=== PATIENT | female | born 1960 | race Caucasian/White ===

== ENCOUNTER 2019-12-01 09:57 | Inpatient (IN) | payer OTHER ==
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
[2019-12-02] MEDS ORDERED: CYCLOBENZAPRINE 10 MG TAB PO PRN (20:07)
[2019-12-02] MEDS: CODEINE 30MG/APAP 300MG TAB PO PRN (20:37)
[2019-12-02] MEDS ORDERED: MAGNES/ALUMIN/SIMET 30ML UCUP PO PRN (22:22)
[2019-12-02] MEDS ORDERED: FEXOFENADINE 180 MG TAB PO PRN (22:24)
[2019-12-02] MEDS ORDERED: CALCIUM CARBONATE CHEW 500MG TAB PO PRN (22:25)
[2019-12-02] MEDS ORDERED: DOCUSATE NA/SENNA CONC 1 TAB PO PRN (22:26)
[2019-12-03] MEDS ORDERED: IBUPROFEN 400 MG TAB PO SCH (01:00)
[2019-12-03] MEDS: CODEINE 30MG/APAP 300MG TAB PO PRN ×5 (03:10→21:15)
[2019-12-03 04:09] LABS: Urine Appearance CLEAR; Urine Bilirubin NEGATIVE (NEG); Urine Blood NEGATIVE (NEG); Urine Color YELLOW; Urine Glucose NEGATIVE (NEG); Urine Protein NEGATIVE (NEG); Urine pH 5.5 (5.0-7.0)
[2019-12-03 04:38] LABS: Urine Bacteria >50 /HPF (<20); Urine Culture Reflex Order NOT NEEDED; Urine RBC <5 /HPF (NONE SEEN)
[2019-12-03 04:39] LABS: Urine Mucus 2+ /HPF (NONE SEEN)
[2019-12-03 07:08] LABS: Albumin 2.3 g/dL (3.4-5.0); BUN Blood Urea Nitrogen 11 mg/dL (7-18); Bicarbonate 29 mmol/L (21-32); Glucose Level 79 mg/dL (74-106); Magnesium 1.7 mg/dL (1.8-2.4); Potassium 3.7 mmol/L (3.5-5.1); Prealbumin 10.1 mg/dL (20-40); Sodium Level 143 mmol/L (136-145)
[2019-12-03 07:23] LABS: Absolute Lymphocytes (CBC) 1.3 K/uL (0.7-4.9); Basophils % 0.6 % (0-1.3); Hematocrit 26.2 % (36.0-45.0); Lymphocytes % 18.5 % (15.3-44.8); MPV 7.7 fL (7.6-11.3); RBC Red Blood Cell Count 2.94 M/uL (3.86-4.86)
[2019-12-03] MEDS ORDERED: DULERA 100/5 (MOMETASONE/FORMOTEROL) INHALER IH SCH (08:00)
[2019-12-03] MEDS ORDERED: GABAPENTIN 300 MG CAP PO SCH (08:00)
[2019-12-03] MEDS: FERROUS SULFATE 325 MG TAB PO SCH (08:29)
[2019-12-03] MEDS: FE SULF/FA/VIT B COMP & C TAB PO SCH (08:29)
[2019-12-03] MEDS: APIXABAN 2.5 MG TABLET PO SCH ×2 (08:30→19:51)
[2019-12-03] MEDS: MONTELUKAST 10 MG TAB PO SCH (08:30)
[2019-12-03] MEDS: PROMOD 30 ML DOSE PO SCH ×2 (08:32→19:51)
[2019-12-03] MEDS ORDERED: ALBUTEROL 2.5 MG/3 ML NEB SOL NEB PRN ×2 (09:05→16:00)
--- NOTE | 2019-12-03 10:04 | P.RH.PN ---
Estimated Length of Stay: 7 Expected Discharge Date: 12/09/19 Discharge Disposition Plan: Home Family Support: Yes Barrel Waterer Goal: Mobility, Transfers, Self Care Vital Signs: Last Vital Signs Temp 99.6 F 12/03/19 07:11 Pulse 88 12/03/19 09:29 Resp 16 12/03/19 09:28 BP 170/90 H 12/03/19 09:29 Pulse Ox 96 12/03/19 09:28 Laboratory: Laboratory Last Values WBC 7.2 K/uL (4.3-10.9) 12/03/19 06:22 RBC 2.94 M/uL (3.86-4.86) L 12/03/19 06:22 Hgb 8.9 g/dL (12.0-15.0) L 12/03/19 06:22 Hct 26.2 % (36.0-45.0) L 12/03/19 06:22 MCV 88.8 fL (80-100) 12/03/19 06:22 MCH 30.3 pg (27.0-35.0) 12/03/19 06:22 MCHC 34.2 g/dL (32.0-36.0) 12/03/19 06:22 RDW 12.5 % (12.1-15.2) 12/03/19 06:22 Plt Count 268 K/uL (152-406) 12/03/19 06:22 MPV 7.7 fL (7.6-11.3) 12/03/19 06:22 Neutrophils % 66.3 % (41.7-73.7) 12/03/19 06:22 Lymphocytes % 18.5 % (15.3-44.8) 12/03/19 06:22 Monocytes % 8.3 % (3.3-12.3) 12/03/19 06:22 Eosinophils % 6.3 % (0-4.4) H 12/03/19 06:22 Basophils % 0.6 % (0-1.3) 12/03/19 06:22 Absolute Neutrophils 4.8 K/uL (1.8-8.0) 12/03/19 06:22 Absolute Lymphocytes 1.3 K/uL (0.7-4.9) 12/03/19 06:22 Absolute Monocytes 0.6 K/uL (0.1-1.3) 12/03/19 06:22 Absolute Eosinophils 0.5 K/uL (0-0.5) 12/03/19 06:22 Absolute Basophils 0.0 K/uL (0-0.5) 12/03/19 06:22 Sodium 143 mmol/L (136-145) 12/03/19 06:22 Potassium 3.7 mmol/L (3.5-5.1) 12/03/19 06:22 Chloride 108 mmol/L (98-107) H 12/03/19 06:22 Carbon Dioxide 29 mmol/L (21-32) 12/03/19 06:22 BUN 11 mg/dL (7-18) 12/03/19 06:22 Creatinine 0.47 mg/dL (0.55-1.3) L 12/03/19 06:22 Estimated GFR > 90 mL/min (=/>90) 12/03/19 06:22 Glucose 79 mg/dL (74-106) 12/03/19 06:22 Calcium 7.8 mg/dL (8.5-10.1) L 12/03/19 06:22 Magnesium 1.7 mg/dL (1.8-2.4) L 12/03/19 06:22 Albumin 2.3 g/dL (3.4-5.0) L 12/03/19 06:22 Prealbumin 10.1 mg/dL (20-40) L 12/03/19 06:22 Urine Color Yellow 12/03/19 03:15 Urine Appearance Clear 12/03/19 03:15 Urine pH 5.5 (5.0-7.0) 12/03/19 03:15 Ur Specific [place] 1.020 (1.005-1.030) 12/03/19 03:15 Glucose (UA)(Auto) Negative (NEG) 12/03/19 03:15 Urine Ketones 2+ (NEG) H 12/03/19 03:15 Urine Blood Negative (NEG) 12/03/19 03:15 Urine Nitrite Negative (NEG) 12/03/19 03:15 Urine Bilirubin Negative (NEG) 12/03/19 03:15 Urine Urobilinogen 1.0 mg/dL (0.2-1.0) 12/03/19 03:15 Ur Leukocyte Esterase Negative (NEG) 12/03/19 03:15 Urine RBC <5 /HPF (NONE SEEN) 12/03/19 03:15 Urine WBC 5-10 /HPF (<5) H 12/03/19 03:15 Ur Squamous Epith Cells 10-20 /HPF (NONE SEEN) H 12/03/19 03:15 Urine Bacteria >50 /HPF (<20) H 12/03/19 03:15 Hyaline Casts Few /LPF (NONE SEEN) 12/03/19 03:15 Fine Granular Casts Few /LPF (NONE SEEN) 12/03/19 03:15 Urine Mucus 2+ /HPF (NONE SEEN) 12/03/19 03:15 Urine Culture Reflexed Not needed 12/03/19 03:15 Urine Total Protein Negative (NEG) 12/03/19 03:15 Weight: 214 lb Physician Update: Labs reviewed. Her Hgb and prealbumin are low. Will start hemocyte plus and promod. She is being evaluated by PT and OT. Summary: Patient's care plan and long term care phlebotomist goals have been reviewed and revised as necessary. Please see the Rehabilitation Signature page for all necessary signatures.
[2019-12-03] MEDS ORDERED: SENOSIDES 8.6 MG TAB PO PRN (13:05)
[2019-12-03] MEDS: CRANBERRY FRUIT EXTRACT 200 MG CAP PO SCH (19:51)
[2019-12-03] MEDS: GABAPENTIN 300 MG CAP PO SCH (19:51)
[2019-12-03] MEDS: DULERA 100/5 (MOMETASONE/FORMOTEROL) INHALER IH SCH (19:54)
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
[2019-12-03] MEDS: DOCUSATE NA/SENNA CONC 1 TAB PO SCH (20:15)
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
--- NOTE | 2019-12-03 22:18 | PAPE ---
PATIENT: [facility] MR# [id number] REFERRING DOCTOR Beatriz PIMENTEL EVALUATION DATE AND TIME 12/03/2019 22:17 (CDT) NAME BERTHA PARDO DATE OF 1960 AGE 58 PHONE SSN# [id number] GENDER female EVALUATING PHYSICIAN Dr. Nick Romo M.D. ADMISSION DIAGNOSIS: RIGHT FEMUR FRACTURE POST-ADMISSION FUNCTIONAL/MEDICAL STATUS: - Bladder Same accident frequency: Ind - No accidents in the past 7 days - Bowel Same accident frequency: Ind - No accidents in the past 7 days - Walking Same score based on distance walked: 0(N/A) Same score based on distance walked: 1(<=50ft) - Wheelchair Same score based on distance traveled: 0(N/A) STATUS CHANGE EVALUATION: No change in Functional or Medical Status is identified compared with Pre-Admission screening. PATIENT NEEDS CLOSE MEDICAL SUPERVISION BY A REHABILITATION PHYSICIAN FOR: Coordination of Treatment Team Post-Op Complications PATIENT REQUIRES 24X7 REHAB NURSING FOR MEDICAL AND FUNCTIONAL MGT. OF THE FOLLOWING DEFICITS: Disease Management Medication Management Patient/Family Education Providing Safe Environment PATIENT REQUIRES INTENSIVE, COORDINATED INTERDISCIPLINARY APPROACH TO REHAB: Arranging Home Equipment/Services Discharge Planning Family Intervention/Training Advertising Intern/Case Management LIST OF IDENTIFIED AND POTENTIAL PROBLEMS: Alteration in leisure activities Bladder, Incontinence Bowel, Incontinence Infection, Actual or Potential Mobility Impaired Pain, Alteration in Comfort Self Care Deficit Skin Integrity, Actual or Potential Urinary Tract Infection (UTI), Actual or Potential PATIENT COULD BE AT RISK FOR COMPLICATIONS FROM ADVERSE MEDICAL CONDITIONS DUE TO HIS/HER COMORBIDITI ES AND THE RIGORS OF THE INTENSIVE REHABILLITATION PROGRAM. METHODS OR INTERVENTIONS TO AVOID COMPLIC ATIONS INCLUDE: - Infection Clinical staff to assess and manage the signs and symptoms of infection including fever, redness, war mth, etc. - Urinary Tract Infection - Falls Patient will be evaluated for Fall Precautions and will be placed on Fall Precautions as indicated pe r protocol. - Skin Breakdown Nursing will assess skin daily using assessment tool and will place on Skin Breakdown Precautions as indicated per protocol. - Pain Clinical staff may employ non-medication methods such as massage, distraction, decrease stimulus, etc . as needed. Clinical staff will assess patient's pain level every shift per protocol to assess and e nsure pain management effectiveness. Medications will be given and the pain level re-assessed. PRELIMINARY PLAN OF CARE: - Physical Therapy Patient needs Physical Therapy for a daily minimum of 1.5 hours at least 5 out of 7 days, to improve: Mobility, Strengthening, Transfers, Stretching, ROM, Endurance, Ability to manage stairs, Gait, and Balance. - Rehabilitation Nursing Patient requires 24x7 Rehabilitation Nursing for: Pain Issues, Identifying and preventing risk factor s, Monitoring and reporting current medical conditions, Assisting with ambulation and transfer, Lilli ting with all ADL-s, Teaching patients about disease process and medications, Family teaching, Provid ing safe environment, Bowel and Bladder Issues, Skin Integrity, and Medication Management. Patient needs Advertising Intern and/or Case Management for: Discharge Planning, Arranging Home Equipmen t or Services, and Family Interventions. - Dietary and Nutrition Services Patient needs Dietary and Nutrition Services for: Adequate Nutrition, Nutritional Supplements, and Nu tritional Education. - Occupational Therapy Patient needs Occupational Therapy for a daily minimum of 1.5 hours at least 5 out of 7 days, to impr ove Activities of Daily Living, including: Eating, Grooming, Bathing, Dressing, Toileting, Toilet Tra nsfers, Community Reintegration, Higher functional activities, Adaptive Equipment, Splinting, Househo ld Tasks, and Other activities as determined. QI SCORES: - Self-Care A. Eating 06-Independent B. Oral hygiene 03-Partial/moderate assistance C. Toileting hygiene 03-Partial/moderate assistance E. Shower/bathe self 02-Substantial/maximal assistance F. Upper body dressing 03-Partial/moderate assistance G. Lower body dressing 03-Partial/moderate assistance H. Putting on/taking off footwear 03-Partial/moderate assistance - Mobility A. Roll left and right 06-Independent B. Sit to lying 03-Partial/moderate assistance C. Lying to sitting on side of bed 03-Partial/moderate assistance D. Sit to stand 02-Substantial/maximal assistance E. Chair/gxh-ac-vxsoo transfer 03-Partial/moderate assistance F. Toilet transfer 03-Partial/moderate assistance G. Car transfer 88-Not attempted due to medical condition or safety concerns I. Walk 10 feet 88-Not attempted due to medical condition or safety concerns J. Walk 50 feet with two turns 88-Not attempted due to medical condition or safety concerns K. Walk 150 feet 88-Not attempted due to medical condition or safety concerns L. Walking 10 feet on uneven surfaces 88-Not attempted due to medical condition or safety concerns M. 1 step (curb) 88-Not attempted due to medical condition or safety concerns N. 4 steps 88-Not attempted due to medical condition or safety concerns O. 12 steps 88-Not attempted due to medical condition or safety concerns P. Picking up object 06-Independent R. Wheel 50 feet with two turns 88-Not attempted due to medical condition or safety concerns S. Wheel 150 feet 88-Not attempted due to medical condition or safety concerns - Bladder and Bowel Bladder continence 0-Always continent Bowel continence 0-Always continent - Endurance Fair - Balance Fair - Safety Awareness Fair POTENTIAL FUNCTIONAL GOALS FOR PATIENT TO ACHIEVE BY DISCHARGE: - Safety Precaution Patient will remain free from falls or injury at time of discharge. - Bed Mobility Patient will perform bed mobility at 4-Noe level of assistance. - Transfers Patient will complete transfers from bed to chair at 4-Noe level of assistance. - Mobility Patient will ambulate 150 ft with 4-Noe level of assistance with RW. PATIENT REHAB POTENTIAL Audrey PARDO is able and expected to receive 3 hours of individualized therapy daily on at least 5 of juan 7 days Audrey PARDO's prognosis for significant practical improvement within a reasonable period of time appear s Good Expected level of measurable improvement will be of a practical value to Audrey PARDO's functional capac ity or adaptations to impairments Has a viable Discharge Plan Medically appropriate; condition is sufficiently stable to participate in intensive rehab program DISCHARGE PLAN: - Estimated Length of Stay (days) 14. - Consensus on plan Discharge plan has been discussed with primary caregiver. Patient/Family is in agreement with the michelle n. Primary caregiver is in agreement with the plan. - Patient/Family Goals Return home independently. - Planned Living Setting Upon Discharge Home, to live with Family/Relatives. Transitional Living. CONCLUSION ON REHABILITATION NECESSITY: I have evaluated patient's pre-admission functional status and, comparing it to the patient's post-ad mission functional status now, I conclude that the pre-admission assessment was accurate. Patient's c ondition on admission supports the medical necessity of admission to IR[facility]. It is safe to proceed with patient's therapy program. SIGNATURE PANEL: (CDT)
[2019-12-04] MEDS: CODEINE 30MG/APAP 300MG TAB PO PRN ×3 (07:17→17:40)
[2019-12-04] MEDS: CRANBERRY FRUIT EXTRACT 200 MG CAP PO SCH ×2 (07:18→18:50)
[2019-12-04] MEDS: MONTELUKAST 10 MG TAB PO SCH ×2 (07:19→18:51)
[2019-12-04] MEDS: GABAPENTIN 300 MG CAP PO SCH ×2 (07:19→18:50)
[2019-12-04] MEDS: FE SULF/FA/VIT B COMP & C TAB PO SCH (07:19)
[2019-12-04] MEDS: FERROUS SULFATE 325 MG TAB PO SCH (07:19)
[2019-12-04] MEDS: APIXABAN 2.5 MG TABLET PO SCH ×2 (07:19→18:50)
[2019-12-04] MEDS: DULERA 100/5 (MOMETASONE/FORMOTEROL) INHALER IH SCH ×2 (07:19→18:52)
[2019-12-04] MEDS: PROMOD 30 ML DOSE PO SCH ×2 (07:20→19:14)
[2019-12-04] MEDS ORDERED: AMLODIPINE 5 MG TAB PO ONE (10:20)
--- NOTE | 2019-12-04 14:23 | PN ---
Date of Progress Note: 12/04/2019 Subjective: Patient was seen this morning for followup. No new complaints or problems reported by nancy boyer. She was sitting in wheelchair. Pain is well controlled. On pain scale 0-10, it is around 5 /10. Her last bowel movement was day before yesterday. Denies any abdominal pain. No chest pain. No shortness of breath. Objective: HEENT: Unremarkable. Lungs: Clear to auscultation. Heart: Sounds normal. Abdomen: Soft. Bowel sounds normal. No guarding, rigidity, tenderness, distention. Extremities: Trace edema of right dorsum foot. Impression: 1.Hypertension. 2.Mild persistent asthma. 3.Fracture, right distal femur, status post open reduction and internal fixation. 4.Anemia due to acute blood loss. Plan: We will continue current medication. Continue current stool softener. Start the patient on a ntihypertensive medication. Continue iron supplement. Continue current pain medication. Orthopedic consultation was requested from Dr. Verdugo and I will see her tomorrow for followup. ALEXA/MODL Voice ID: [id number] Report ID: [id number]
[2019-12-04 18:07] LABS: Absolute Lymphocytes (CBC) 1.5 K/uL (0.7-4.9); Basophils % 0.6 % (0-1.3); Hematocrit 28.4 % (36.0-45.0); Lymphocytes % 17.3 % (15.3-44.8); MPV 7.5 fL (7.6-11.3); RBC Red Blood Cell Count 3.22 M/uL (3.86-4.86)
--- NOTE | 2019-12-04 18:23 | RAD REPORT ---
EXAM DESCRIPTION: RAD - Chest Single View - 12/04/2019 6:12 pm CLINICAL HISTORY: fever COMPARISON: Two view chest May 2017 TECHNIQUE: AP portable chest image was obtained 12/04/2019 6:12 pm . FINDINGS: Lungs are clear. Heart and vasculature are normal. No measurable pleural effusion and no p neumothorax. No acute bony abnormality seen. No acute aortic findings suspected. No worries change fr om comparison. IMPRESSION: No acute cardiopulmonary process.
[2019-12-04 18:41] LABS: ALT/SGPT 49 U/L (12-78); AST/SGOT 42 U/L (15-37); Albumin 2.5 g/dL (3.4-5.0); Alkaline Phosphatase 173 U/L (45-117); BUN Blood Urea Nitrogen 11 mg/dL (7-18); Bicarbonate 28 mmol/L (21-32); Bilirubin Total 0.8 mg/dL (0.2-1.0); Glucose Level 121 mg/dL (74-106); Magnesium 1.6 mg/dL (1.8-2.4); Potassium 3.2 mmol/L (3.5-5.1); Protein, Total 6.3 g/dL (6.4-8.2); Sodium Level 138 mmol/L (136-145); Thyroid Stimulating Hormone 0.922 uIU/mL (0.360-3.740)
[2019-12-04] MEDS: DOCUSATE NA/SENNA CONC 1 TAB PO SCH (18:50)
[2019-12-04] MEDS: MELATONIN 3 MG TABLET PO PRN (18:50)
[2019-12-04] MEDS: IBUPROFEN 400 MG TAB PO PRN (18:52)
[2019-12-05] MEDS: CODEINE 30MG/APAP 300MG TAB PO PRN ×4 (05:13→16:12)
[2019-12-05 06:25] LABS: Urine Appearance CLEAR; Urine Bilirubin NEGATIVE (NEG); Urine Blood 1+ (NEG); Urine Color DK YELLOW; Urine Glucose NEGATIVE (NEG); Urine Protein NEGATIVE (NEG); Urine pH 5.5 (5.0-7.0)
[2019-12-05 07:19] LABS: Urine Bacteria 20-50 /HPF (<20); Urine Culture Reflex Order NOT NEEDED
[2019-12-05] MEDS ORDERED: AMLODIPINE 5 MG TAB PO SCH (08:00)
[2019-12-05] MEDS: CRANBERRY FRUIT EXTRACT 200 MG CAP PO SCH ×2 (08:18→19:05)
[2019-12-05] MEDS: MONTELUKAST 10 MG TAB PO SCH (08:18)
[2019-12-05] MEDS: FE SULF/FA/VIT B COMP & C TAB PO SCH (08:18)
[2019-12-05] MEDS: PROMOD 30 ML DOSE PO SCH ×2 (08:19→19:08)
[2019-12-05] MEDS: MAGNESIUM OXIDE 400 MG TAB PO SCH ×2 (08:19→19:05)
[2019-12-05] MEDS: APIXABAN 2.5 MG TABLET PO SCH ×2 (08:19→19:06)
[2019-12-05] MEDS: GABAPENTIN 300 MG CAP PO SCH ×2 (08:19→19:06)
[2019-12-05] MEDS: FERROUS SULFATE 325 MG TAB PO SCH (08:19)
[2019-12-05] MEDS: DULERA 100/5 (MOMETASONE/FORMOTEROL) INHALER IH SCH ×2 (08:22→19:09)
[2019-12-05] MEDS ORDERED: CIPROFLOXACIN HCL 500 MG TAB PO ONE (08:23)
--- NOTE | 2019-12-05 09:30 | P.PN ---
Date of Service: 12/04/19 (spoke to dr miller we were not consulted)
[2019-12-05] MEDS ORDERED: POTASSIUM CL SA 10 MEQ TAB PO ONE (11:42)
--- NOTE | 2019-12-05 13:27 | PN ---
Date of Progress Note: 12/05/2019 Subjective: The patient was seen this morning for followup. No new complaints or problems reported by patient this morning. Vital signs reviewed. Her last bowel movement was the day she came in from another hospital. Denies any abdominal pain, nausea, or vomiting. Patient reports that at home she does not have bowel movement on a daily basis. She has 1 every few days, so this is not unusual for her. Pain is well controlled. Denies any shortness of breath. Objective: Vital Signs: Reviewed. Yesterday, she had low-grade fever and workup was done and resul ts reviewed. HEENT: Unremarkable. Lungs: Clear to auscultation. Heart: Sounds normal. Abdomen: Soft. Bowel sounds normal. No guarding, rigidity, tenderness, or distention. Extremities: Right foot edema. Laboratory Data: white count yesterday 8.9, hemoglobin 9.7, platelets 320. Sodium 138, potassium 3. 2, chloride 103, bicarb 28, BUN 11, creatinine 0.41, glucose 121, magnesium 1.6. TSH 0.922. Urinaly sis: 2+ esterase, 20-50 wbc's, and 20-50 bacteria. Urine culture pending. Chest x-ray, no evidence of infiltrate. Impression: 1.Urinary tract infection. 2.Hypertension. 3.Right femur fracture. 4.Anemia due to acute blood loss. Plan: We will go ahead and start the patient on Cipro. Replace electrolytes per order. Continue cu rrent antihypertensive medications and hold if systolic blood pressure is less than 130. Details and plan of treatment discussed with h er. ALEXA/NADER Voice ID: [id number] Report ID: [id number]
[2019-12-05] MEDS: MAGNESIUM HYDROXIDE 8% 30 ML PO PRN (16:12)
[2019-12-05] MEDS: MELATONIN 3 MG TABLET PO PRN (19:06)
[2019-12-05] MEDS: DOCUSATE NA/SENNA CONC 1 TAB PO SCH (19:06)
[2019-12-05] MEDS: IBUPROFEN 400 MG TAB PO PRN (19:06)
[2019-12-05] MEDS: CIPROFLOXACIN HCL 500 MG TAB PO SCH (19:07)
[2019-12-06] MEDS: CODEINE 30MG/APAP 300MG TAB PO PRN ×4 (03:06→20:30)
[2019-12-06 06:47] LABS: BUN Blood Urea Nitrogen 12 mg/dL (7-18); Bicarbonate 34 mmol/L (21-32); Glucose Level 103 mg/dL (74-106); Potassium 3.7 mmol/L (3.5-5.1); Sodium Level 142 mmol/L (136-145)
[2019-12-06] MEDS: PROMOD 30 ML DOSE PO SCH ×2 (07:54→19:37)
[2019-12-06] MEDS: DULERA 100/5 (MOMETASONE/FORMOTEROL) INHALER IH SCH ×2 (07:55→19:37)
[2019-12-06] MEDS: CRANBERRY FRUIT EXTRACT 200 MG CAP PO SCH ×2 (07:55→19:36)
[2019-12-06] MEDS: FERROUS SULFATE 325 MG TAB PO SCH (07:56)
[2019-12-06] MEDS: AMLODIPINE 5 MG TAB PO SCH (07:56)
[2019-12-06] MEDS: GABAPENTIN 300 MG CAP PO SCH ×2 (07:56→19:36)
[2019-12-06] MEDS: MAGNESIUM OXIDE 400 MG TAB PO SCH ×2 (07:56→19:36)
[2019-12-06] MEDS: MONTELUKAST 10 MG TAB PO SCH (07:56)
[2019-12-06] MEDS: CIPROFLOXACIN HCL 500 MG TAB PO SCH ×2 (07:57→19:36)
[2019-12-06] MEDS: APIXABAN 2.5 MG TABLET PO SCH ×2 (07:57→19:36)
[2019-12-06] MEDS: FE SULF/FA/VIT B COMP & C TAB PO SCH (07:57)
[2019-12-06] MEDS: MAGNESIUM HYDROXIDE 8% 30 ML PO PRN (07:59)
[2019-12-06] MEDS: POLYETHYL GLY 3350 17 GM/DOSE PO PRN (14:47)
--- NOTE | 2019-12-06 19:05 | R.PN ---
ENCOUNTER DATE AND TIME: 12/06/2019 18:56 (CDT) NAME BERTHA PARDO DATE OF : 1960 DATE OF ADMISSION: 12/02/2019 17:59 (CDT) RIGHT FEMUR FRACTURECHIEF COMPLAINT: Right hip fracture SUBJECTIVE: Pt denied any depression. Pt denied any Shortness of Breath. She is COVID-19 negative. Her right hip pain is controlled. She ambulated 60 feet with a rolling walk er and standby assistance. WBC 8.9, Hgb 9.7, prealbumin 10.1. Calcium is low at 8.0. She is medically managed by . UA and culture showed mixed raegan. She will followup with ortho Dr. Verdugo after discharge. VITAL SIGNS Temperature: 98.2F SBP/DBP: 138/88 Pulse: 87 Resp: 14 MEDICATION ALLERGIES: No Known Drug Allergies (NKDA) ENVIRONMENTAL ALLERGIES: - Substance Allergies None Known - Other Allergies None Known NURSING: - Shower allowing shower - Skin care per protocol PRECAUTIONS: - Weight Bearing Precaution WBAT right LE ACTIVITIES OOB only with supervision THERAPIES: - Dietary and Nutrition Adequate Nutrition. Nutritional Education. Nutritional Supplements. PHYSICAL EXAM - Gen Alert and awake Lying in bed No apparent distress Oriented to: person, time, and place - Skin No skin breakdown. Normacephalic - Eyes No abnormalities - ENMT No abnormalities - Neck No abnormalities - CVS RRR - Chest No abnormalities - Resp Clear to auscultation - Abd Soft - GI Non distended Deferred - No abnormalities - Ext Right hip surgical site has good hemostasis. - MSK 4+/5 weakness in right lower extremity - Neuro 4/5 strength right lower extremity. - Psych No abnormalities ASSESSMENT: Pt. is a 58 yo Right-handed white female.On 11/27/2019 she was admitted to [facility] with diagno sis RIGHT FEMUR FRACTURE.Her impairment category is Orthopaedic Disorders 08 - Femur (Shaft) Fractur e (08.2).Pre-morbidly, Pt. was independent/mod-I in Communication, Self-Care, Transfers Control, Safe ty Awareness, Balance, and Social Cognition; and she had good Locomotion and Sphincter Control.Curren tly, she has deficits of Endurance, Locomotion, Balance, and Safety Awareness.Pt. is now referred to [facility] for acute in-patient rehabilitation in order to maximize patient's functional independence in activities of daily living, strength, ROM, and mobility.- Rehab Goal Patient has realistic goal of being discharged at assistance level 6-Valentin to reside at Home with Fam aurora/Relatives. MDM/PLAN: - Physical Therapy Decreased range of motion - to improve, our physical therapists will perform initial evaluation of p t's status upon admission and devise an individualized program for increasing patient's Range of Sj on. Gait dysfunction - to improve, our physical therapists will perform initial evaluation of pt's statu s upon admission and devise an individualized program for Gait Training, and Wheel Chair mobility Need for home safety evaluation - to improve, our physical therapists will perform initial evaluatio n of pt's status upon admission and devise an individualized program for Home Evaluation Need in caregiver upon discharge - to improve, our physical therapists will perform initial evaluati on of pt's status upon admission and devise an individualized program for Caregiver Training New precaution - to improve, our physical therapists will perform initial evaluation of pt's status upon admission and devise an individualized program for Patient precaution education Poor balance - to improve, our physical therapists will perform initial evaluation of pt's status up on admission and devise an individualized program for Balance Training Poor endurance - to improve, our physical therapists will perform initial evaluation of pt's status upon admission and devise an individualized program for Endurance Training Weakness - to improve, our physical therapists will perform initial evaluation of pt's status upon a dmission and devise an individualized program for Aquatic Therapy, Neuromuscular Reeducation, and Str engthening Achieving independence - to improve, our physical therapists will perform initial evaluation of pt's status upon admission and devise an individualized program for Community Reintegration Activities - Occupational Therapy Need for aged or disabled carer - to improve, our occupation therapists will perform initial evaluation of pt's status upon admission and devise an individualized program for Caregiver Training Weakness - to improve, our occupation therapists will perform initial evaluation of pt's status upon admission and devise an individualized program for Aquatic Therapy, Balance, Endurance, UE ROM, and UE strengthening - Other See attached MAR (Medication Administration Record) - Diet Type Continue Regular - Diet - Liquid Texture Continue Regular - Tube Feed Continue N/A - Weight Bearing Precaution WBAT right LE - Skin care per protocol - Diet - Solid Texture Continue Regular - Shower allowing shower FUNCTIONAL STATUS: UPDATED AT WEEKLY TEAM CONFERENCE - Bladder Same accident frequency: 7-Ind - No accidents in the past 7 days - Bowel Same accident frequency: 7-Ind - No accidents in the past 7 days - Walking Same score based on distance walked: 0(N/A) Same score based on distance walked: 1(<=50ft) - Wheelchair Same score based on distance traveled: 0(N/A) FUNCTIONAL STATUS: - Self-Care A. Eating Ind B. Grooming Ind C. Bathing Noe D. Dressing - Upper Noe E. Dressing - Lower modA F. Toileting Noe - Sphincter Control G. Bladder control Valentin H. Bowel control Valentin - Transfers Control I. Bed/Chair/Wheelchair Noe J. Toilet Noe K. Tub/Shower modA - Locomotion L. Walk/Wheelchair (B) Noe M. Stairs ADNO - Communication N. Comprehension (B) Ind O. Expression (B) Ind - Social Cognition P. Social Interaction Ind Q. Problem Solving Ind R. Memory Ind - Endurance Fair - Balance Fair - Safety Awareness Good QI SCORES: - Self-Care A. Eating 06-Independent B. Oral hygiene 03-Partial/moderate assistance C. Toileting hygiene 03-Partial/moderate assistance E. Shower/bathe self 02-Substantial/maximal assistance F. Upper body dressing 03-Partial/moderate assistance G. Lower body dressing 03-Partial/moderate assistance H. Putting on/taking off footwear 03-Partial/moderate assistance - Mobility A. Roll left and right 06-Independent B. Sit to lying 03-Partial/moderate assistance C. Lying to sitting on side of bed 03-Partial/moderate assistance D. Sit to stand 02-Substantial/maximal assistance E. Chair/cop-yj-mlguj transfer 03-Partial/moderate assistance F. Toilet transfer 03-Partial/moderate assistance G. Car transfer 88-Not attempted due to medical condition or safety concerns I. Walk 10 feet 88-Not attempted due to medical condition or safety concerns J. Walk 50 feet with two turns 88-Not attempted due to medical condition or safety concerns K. Walk 150 feet 88-Not attempted due to medical condition or safety concerns L. Walking 10 feet on uneven surfaces 88-Not attempted due to medical condition or safety concerns M. 1 step (curb) 88-Not attempted due to medical condition or safety concerns N. 4 steps 88-Not attempted due to medical condition or safety concerns O. 12 steps 88-Not attempted due to medical condition or safety concerns P. Picking up object 06-Independent R. Wheel 50 feet with two turns 88-Not attempted due to medical condition or safety concerns S. Wheel 150 feet 88-Not attempted due to medical condition or safety concerns - Bladder and Bowel Bladder continence 0-Always continent Bowel continence 0-Always continent - Endurance Fair - Balance Fair - Safety Awareness Fair CURRENT [facility]. DEFICITS: Endurance, Balance, Safety Awareness, Self-Care, and Mobility SIGNATURE PANEL: (CDT)
--- NOTE | 2019-12-06 19:13 | P.CNS ---
Date of Consult: 12/06/19 Reason for Consult: post op Chief Complaint: leg pain Allergies cefaclor [From Ceclor] Allergy (Verified 05/27/17 19:47) Unknown c-clor Allergy (Uncoded 02/14/16 18:20) Nausea/Vomiting SHELLFISH Allergy (Uncoded 02/14/16 18:20) Unknown Strawberries Allergy (Uncoded 02/14/16 18:20) Unknown Home Medications: Fluticasone/Salmeterol [Advair 250-50 Diskus] 2 each IH DAILY 02/14/16 Acetaminophen with Codeine [Acetaminophen-Cod #3 Tablet] 2 tab PO Q4HP PRN 05/27/17 Gabapentin [Neurontin*] 300 mg PO BID 05/27/17 Montelukast [Singulair*] 1 tab PO DAILY 05/27/17 Cyclobenzaprine [Flexeril] 10 mg PO TID PRN 12/02/19 Fexofenadine HCl [Jena Allergy] 180 mg PO DAILY 12/02/19 Ibuprofen 800 mg PO Q8H PRN 12/02/19 Mag Hydrox/Aluminum Hyd/Simeth [Mag-Al Hydrox-Simeth Max Susp] 30 ml PO Q6H PRN 12/02/19 - Past Medical/Surgical History Diabetic: No -: ASTHMA -: HTN - patient states as resolved by weight loss -: Lymphademia -: CHOLECYSTECTOMY -: TUBAL LIGATION -: -: LOWER BACK SX -: GASTRIC SLEEVE -: TONSILLECTOMY - Family History Mother Medical History: Other (see notes) Notes: back problems - Social History Alcohol use: No CD- Drugs: No Caffeine use: Yes Place of Residence: Home Review of Systems 10-point ROS is otherwise unremarkable Physical Examination Temp Pulse Resp BP Pulse Ox 98.8 F 87 16 138/88 95 12/06/19 16:30 12/06/19 07:56 12/06/19 17:59 12/06/19 07:56 12/06/19 17:59 Musculoskeletal: Other (wearing knee hinged knee brace on her right knee) Laboratory Data (last 24 hrs) 12/06/19 06:02: Sodium 142, Potassium 3.7, BUN 12, Creatinine 0.40 L, Glucose 103 - Problems (1) Fracture, femur, distal, open Onset Date: ~11/27/19 Current Visit: Yes Status: Acute Qualifiers: Encounter type: initial encounter Open fracture type: open type I or II Fracture morphology: other fracture Laterality: right Qualified Code(s): S72.491B - Other fracture of lower end of right femur, initial encounter for open fracture type I or II (2) Status post open reduction and internal fixation (ORIF) of fracture Current Visit: Yes Status: Acute Conclusions/Impression: touchdown weight baring only for 6 weeks, follow up in the office 2 weeks postop.
[2019-12-06] MEDS: DOCUSATE NA/SENNA CONC 1 TAB PO SCH (20:01)
--- NOTE | 2019-12-06 23:34 | PN ---
Date of Progress Note: 12/06/2019 Subjective: The patient was seen this morning for followup. No new complaints or problems reported by her, lying in bed, not in distress. Objective: Vital Signs: Reviewed. HEENT: Unremarkable. Lungs: Clear to auscultation. No rhonchi or rales. Heart: Heart sounds normal. Abdomen: Soft, bowel sounds normal. No guarding, rigidity, tenderness, or distention. Extremities: No leg edema except trace right foot edema. Laboratory Data: Sodium 142, potassium 3.7, chloride 104, bicarb 34, BUN 12, creatinine 0.40, glucos e 103. Impression: 1.Urinary tract infection. 2.Hypokalemia. 3.Hypertension. 4.Mild persistent asthma. Plan: We will continue current medication. Continue current antibiotics. Urine culture result is p ending. Continue current DVT prophylaxis and I will see her tomorrow for followup. ALEXA/MODL Voice ID: [id number] Report ID: [id number]
[2019-12-07] MEDS: AMLODIPINE 5 MG TAB PO SCH (08:00)
[2019-12-07] MEDS: FE SULF/FA/VIT B COMP & C TAB PO SCH (08:04)
[2019-12-07] MEDS ORDERED: BISACODYL 10 MG RECTAL SUPP PR ONE (08:04)
[2019-12-07] MEDS: CRANBERRY FRUIT EXTRACT 200 MG CAP PO SCH ×2 (08:04→19:03)
[2019-12-07] MEDS: GABAPENTIN 300 MG CAP PO SCH ×2 (08:04→19:03)
[2019-12-07] MEDS: FERROUS SULFATE 325 MG TAB PO SCH (08:04)
[2019-12-07] MEDS: MONTELUKAST 10 MG TAB PO SCH (08:05)
[2019-12-07] MEDS: CIPROFLOXACIN HCL 500 MG TAB PO SCH ×2 (08:05→19:03)
[2019-12-07] MEDS: APIXABAN 2.5 MG TABLET PO SCH ×2 (08:05→19:03)
[2019-12-07] MEDS: MAGNESIUM OXIDE 400 MG TAB PO SCH ×2 (08:06→19:03)
[2019-12-07] MEDS: CODEINE 30MG/APAP 300MG TAB PO PRN ×3 (08:06→19:04)
[2019-12-07] MEDS: PROMOD 30 ML DOSE PO SCH ×2 (08:07→19:05)
[2019-12-07] MEDS: DULERA 100/5 (MOMETASONE/FORMOTEROL) INHALER IH SCH ×2 (09:00→19:03)
[2019-12-07] MEDS: POLYETHYL GLY 3350 17 GM/DOSE PO PRN (12:11)
--- NOTE | 2019-12-07 14:18 | FAST ---
SHIFT START DATE/TIME: 12/07/2019 07:00 (CDT) SHIFT END DATE/TIME: 12/07/2019 19:00 (CDT) NAME BERTHA PARDO DATE OF : 1960 DATE OF ADMISSION: 12/02/2019 17:59 (CDT) PHONE: AGE: 58 N# [id number] GENDER: Female ENCOUNTER PHYSICIAN: Dr. Nick Romo M.D. ADMISSION DIAGNOSIS: - Orthopaedic Disorders 08 - Femur (Shaft) Fracture (08.2) RIGHT FEMUR FRACTURE. EATING: EATING - STEP 1: Does the patient complete the activity by him/herself with no assistance (physical, verbal/nonverbal cueing, setup/clean-up)? No. EATING - STEP 2: Does the patient need only setup/clean-up assistance from one helper? Yes. 1. [id number] ADMISSION PERFORMANCE: Setup or clean-up assistance CODE: 05 ORAL HYGIENE: ORAL HYGIENE - STEP 1: Does the patient complete the activity by him/herself with no assistance (physical, verbal/nonverbal cueing, setup/clean-up)? No. ORAL HYGIENE - STEP 2: Does the patient need only setup/clean-up assistance from one helper? Yes. 1. [id number] ADMISSION PERFORMANCE: Setup or clean-up assistance CODE: 05 TOILETING HYGIENE: TOILETING HYGIENE - STEP 1: Does the patient complete the activity by him/herself with no assistance (physical, verbal/nonverbal cueing, setup/clean-up)? No. TOILETING HYGIENE - STEP 2: Does the patient need only setup/clean-up assistance from one helper? Yes. 1. [id number] ADMISSION PERFORMANCE: Setup or clean-up assistance CODE: 05 BATHING: Not assessed/no information CODE: - DRESSING - UPPER BODY: DRESSING - UPPER BODY - STEP 1: Does the patient complete the activity by him/herself with no assistance (physical, verbal/nonverbal cueing, setup/clean-up)? No. DRESSING - UPPER BODY - STEP 2: Does the patient need only setup/clean-up assistance from one helper? Yes. 1. [id number] ADMISSION PERFORMANCE: Setup or clean-up assistance CODE: 05 DRESSING - LOWER BODY: DRESSING - LOWER BODY - STEP 1: Does the patient complete the activity by him/herself with no assistance (physical, verbal/nonverbal cueing, setup/clean-up)? No. DRESSING - LOWER BODY - STEP 2: Does the patient need only setup/clean-up assistance from one helper? No. DRESSING - LOWER BODY - STEP 3: Does the patient need only verbal/nonverbal cueing or touching/steadying/contact guard assistance fro m one helper? Yes. 1. [id number] ADMISSION PERFORMANCE: Supervision or touching assistance CODE: 04 PUTTING ON/TAKING OFF FOOTWEAR: Not attempted due to medical condition or safety concerns CODE: 88 ROLL LEFT AND RIGHT: ROLL LEFT AND RIGHT - STEP 1: Does the patient complete the activity by him/herself with no assistance (physical, verbal/nonverbal cueing, setup/clean-up)? No. ROLL LEFT AND RIGHT - STEP 2: Does the patient need only setup/clean-up assistance from one helper? No. ROLL LEFT AND RIGHT - STEP 3: Does the patient need only verbal/nonverbal cueing or touching/steadying/contact guard assistance fro m one helper? Yes. 1. [id number] ADMISSION PERFORMANCE: Supervision or touching assistance CODE: 04 SIT TO LYING: SIT TO LYING - STEP 1: Does the patient complete the activity by him/herself with no assistance (physical, verbal/nonverbal cueing, setup/clean-up)? No. SIT TO LYING - STEP 2: Does the patient need only setup/clean-up assistance from one helper? Yes. 1. [id number] ADMISSION PERFORMANCE: Setup or clean-up assistance CODE: 05 LYING TO SITTING: LYING TO SITTING ON SIDE OF BED - STEP 1: Does the patient complete the activity by him/herself with no assistance (physical, verbal/nonverbal cueing, setup/clean-up)? No. LYING TO SITTING ON SIDE OF BED - STEP 2: Does the patient need only setup/clean-up assistance from one helper? Yes. 1. [id number] ADMISSION PERFORMANCE: Setup or clean-up assistance CODE: 05 SIT TO STAND: SIT TO STAND - STEP 1: Does the patient complete the activity by him/herself with no assistance (physical, verbal/nonverbal cueing, setup/clean-up)? No. SIT TO STAND - STEP 2: Does the patient need only setup/clean-up assistance from one helper? No. SIT TO STAND - STEP 3: Does the patient need only verbal/nonverbal cueing or touching/steadying/contact guard assistance fro m one helper? Yes. 1. [id number] ADMISSION PERFORMANCE: Supervision or touching assistance CODE: 04 TRANSFERS: BED, CHAIR: CHAIR/[id number] TRANSFER - STEP 1: Does the patient complete the activity by him/herself with no assistance (physical, verbal/nonverbal cueing, setup/clean-up)? No. CHAIR/[id number] TRANSFER - STEP 2: Does the patient need only setup/clean-up assistance from one helper? No. CHAIR/[id number] TRANSFER - STEP 3: Does the patient need only verbal/nonverbal cueing or touching/steadying/contact guard assistance fro m one helper? Yes. 1. [id number] ADMISSION PERFORMANCE: Supervision or touching assistance CODE: 04 TRANSFER TOILET: TOILET TRANSFER - STEP 1: Does the patient complete the activity by him/herself with no assistance (physical, verbal/nonverbal cueing, setup/clean-up)? No. TOILET TRANSFER - STEP 2: Does the patient need only setup/clean-up assistance from one helper? Yes. 1. [id number] ADMISSION PERFORMANCE: Setup or clean-up assistance CODE: 05 TRANSFERS: CAR: Not assessed/no information CODE: - WALK 10 FEET: Not assessed/no information CODE: - 1 STEP (CURB): Not assessed/no information CODE: - PICKING UP OBJECT: Not assessed/no information CODE: - DOES THE PATIENT USE A WHEELCHAIR/SCOOTER? Q1. DOES THE PATIENT USE A WHEELCHAIR/SCOOTER?: Yes CODE: 1 WHEEL 50 FEET WITH TWO TURNS: WHEEL 50 FEET WITH TWO TURNS - STEP 1: Does the patient complete the activity by him/herself with no assistance (physical, verbal/nonverbal cueing, setup/clean-up)? No. WHEEL 50 FEET WITH TWO TURNS - STEP 2: Does the patient need only setup/clean-up assistance from one helper? Yes. 1. [id number] ADMISSION PERFORMANCE: Setup or clean-up assistance CODE: 05 INDICATE THE TYPE OF WHEELCHAIR/SCOOTER USED: RR1. INDICATE THE TYPE OF WHEELCHAIR/SCOOTER USED.: Manual CODE: 1 WHEEL 150 FEET: Not assessed/no information CODE: - INDICATE THE TYPE OF WHEELCHAIR/SCOOTER USED: SS1. INDICATE THE TYPE OF WHEELCHAIR/SCOOTER USED.: Manual CODE: 1 BLADDER AND BOWEL: H350. BLADDER CONTINENCE (3-DAY ASSESSMENT PERIOD): Always continent (no documented incontinence) CODE: 0 H400. BOWEL CONTINENCE (3-DAY ASSESSMENT PERIOD): Always continent CODE: 0 SIGNATURE PANEL: The following modified sections: 1. [id number] Admission Performance, 1. [id number] Admission Performance, 1. [id number] Admission Performance, 1. HZ4350s Admission Performance, 1. CG3250u Admission Performance, 1. ND3330S Admission Performance, 1. [id number] Admission Performance, 1. [id number] Admission Performance , 1. NV0499K Admission Performance, 1. [id number] Admission Performance, 1. [id number] Admission Performanc e, Q1. Does the patient use a wheelchair/scooter?, 1. [id number] Admission Performance, RR1. Indicate th e type of wheelchair/scooter used., Code, SS1. Indicate the type of wheelchair/scooter used., H350. B ladder Continence (3-day assessment period), H400. Bowel Continence (3-day assessment period) were [e lectronically] signed by Nataly Onofre C.N.A. on FriDec 07 2019 14:18:11 [facility]-0500 (Central Daylight Time)
[2019-12-07] MEDS ORDERED: DOCUSATE NA 100 MG CAP PO PRN (16:25)
[2019-12-07] MEDS: DOCUSATE NA/SENNA CONC 1 TAB PO SCH (20:12)
--- NOTE | 2019-12-08 00:49 | PN ---
Date of Progress Note: 12/07/2019 Subjective: The patient was seen this morning for followup. She was lying in bed. Denied any complaints except she was very upset this morning when I saw her and was crying because she did not have good experience and visit with physician assistant housekeeping manager, who visited her on behalf of Dr. Verdugo. Objective: Vital Signs: Reviewed. HEENT: Unremarkable. Lungs: Clear to auscultation. Heart: Sounds normal. Abdomen: Soft. Bowel sounds normal. No guarding, rigidity, tenderness, or distention. Extremities: No leg edema. Impression: 1. Constipation. 2. Right femur fracture. 3. Hypertension. 4. Asthma. 5. Anemia due to acute blood loss. Plan: We will continue current medication. The patient has not had a bowel movement since she came into rehab. We will give her Dulcolax rectal suppository today x1 dose. Continue physical therapy under guidance of Dr. Romo and I will see her tomorrow for followup. I did talk to the patient and offered her that on her behalf, I can talk to either Dr. Verdugo and request him to follow up with the patient at appropriate time or if she wants to try and follow up with another Orthopedic doctor. She will think about it and let me know. ALEXA/MODL Voice ID: [id number] Report ID: [id number] MTDD
[2019-12-08] MEDS: DULERA 100/5 (MOMETASONE/FORMOTEROL) INHALER IH SCH ×2 (07:55→19:03)
[2019-12-08] MEDS: CODEINE 30MG/APAP 300MG TAB PO PRN ×2 (07:55→17:42)
[2019-12-08] MEDS: CIPROFLOXACIN HCL 500 MG TAB PO SCH ×2 (07:56→19:03)
[2019-12-08] MEDS: GABAPENTIN 300 MG CAP PO SCH ×2 (07:56→19:02)
[2019-12-08] MEDS: VITAMIN D 5,000 UNIT CAP PO SCH (07:56)
[2019-12-08] MEDS: CRANBERRY FRUIT EXTRACT 200 MG CAP PO SCH ×2 (07:56→19:03)
[2019-12-08] MEDS: AMLODIPINE 5 MG TAB PO SCH (07:57)
[2019-12-08] MEDS: MONTELUKAST 10 MG TAB PO SCH (07:57)
[2019-12-08] MEDS: ASCORBIC ACID 500 MG TABLET PO SCH (07:58)
[2019-12-08] MEDS: APIXABAN 2.5 MG TABLET PO SCH ×2 (07:58→19:03)
[2019-12-08] MEDS: MAGNESIUM OXIDE 400 MG TAB PO SCH ×2 (07:58→19:03)
[2019-12-08] MEDS: FE SULF/FA/VIT B COMP & C TAB PO SCH (07:58)
[2019-12-08] MEDS: FERROUS SULFATE 325 MG TAB PO SCH (07:58)
[2019-12-08] MEDS: PROMOD 30 ML DOSE PO SCH ×2 (07:58→19:03)
[2019-12-08] MEDS: DULOXETINE 20 MG CAP PO SCH (08:25)
[2019-12-08] MEDS: DOCUSATE NA/SENNA CONC 1 TAB PO SCH (19:03)
--- NOTE | 2019-12-08 19:18 | R.PN ---
ENCOUNTER DATE AND TIME: 12/08/2019 19:15 (CDT) NAME BERTHA PARDO DATE OF : 1960 DATE OF ADMISSION: 12/02/2019 17:59 (CDT) RIGHT FEMUR FRACTURECHIEF COMPLAINT: Right hip fracture SUBJECTIVE: Pt denied any depression. Pt denied any Shortness of Breath. She is COVID-19 negative. Her right hip pain is controlled. She ambulated 45 feet with a rolling walk er and minimum assistance. Mobilized wheelchair 500' with standby assistance. WBC 8.9, Hgb 9.7, prealbumin 10.1. Calcium is low at 8.0. She is medically managed by . UA and culture showed mixed raegan. She will followup with ortho Dr. Verdugo after discharge. Her pain is managed. She is taking a stool softener. VITAL SIGNS Temperature: 98.0 F SBP/DBP: 102/56 Pulse: 79 Resp: 16 MEDICATION ALLERGIES: No Known Drug Allergies (NKDA) ENVIRONMENTAL ALLERGIES: - Substance Allergies None Known - Other Allergies None Known NURSING: - Shower allowing shower - Skin care per protocol PRECAUTIONS: - Weight Bearing Precaution WBAT right LE ACTIVITIES OOB only with supervision THERAPIES: - Dietary and Nutrition Adequate Nutrition. Nutritional Education. Nutritional Supplements. PHYSICAL EXAM - Gen Alert and awake Lying in bed No apparent distress Oriented to: person, time, and place - Skin No skin breakdown. Normacephalic - Eyes No abnormalities - ENMT No abnormalities - Neck No abnormalities - CVS RRR - Chest No abnormalities - Resp Clear to auscultation - Abd Soft - GI Non distended Deferred - No abnormalities - Ext Right hip surgical site has good hemostasis. - MSK 4+/5 weakness in right lower extremity - Neuro 4/5 strength right lower extremity. - Psych No abnormalities ASSESSMENT: Pt. is a 58 yo Right-handed white female.On 11/27/2019 she was admitted to [facility] with diagno sis RIGHT FEMUR FRACTURE.Her impairment category is Orthopaedic Disorders 08 - Femur (Shaft) Fractur e (08.2).Pre-morbidly, Pt. was independent/mod-I in Communication, Self-Care, Transfers Control, Safe ty Awareness, Balance, and Social Cognition; and she had good Locomotion and Sphincter Control.Curren tly, she has deficits of Endurance, Locomotion, Balance, and Safety Awareness.Pt. is now referred to [facility] for acute in-patient rehabilitation in order to maximize patient's functional independence in activities of daily living, strength, ROM, and mobility.- Rehab Goal Patient has realistic goal of being discharged at assistance level 6-Valentin to reside at Home with Fam aurora/Relatives. MDM/PLAN: - Physical Therapy Decreased range of motion - to improve, our physical therapists will perform initial evaluation of p t's status upon admission and devise an individualized program for increasing patient's Range of Sj on. Gait dysfunction - to improve, our physical therapists will perform initial evaluation of pt's statu s upon admission and devise an individualized program for Gait Training, and Wheel Chair mobility Need for home safety evaluation - to improve, our physical therapists will perform initial evaluatio n of pt's status upon admission and devise an individualized program for Home Evaluation Need in caregiver upon discharge - to improve, our physical therapists will perform initial evaluati on of pt's status upon admission and devise an individualized program for Caregiver Training New precaution - to improve, our physical therapists will perform initial evaluation of pt's status upon admission and devise an individualized program for Patient precaution education Poor balance - to improve, our physical therapists will perform initial evaluation of pt's status up on admission and devise an individualized program for Balance Training Poor endurance - to improve, our physical therapists will perform initial evaluation of pt's status upon admission and devise an individualized program for Endurance Training Weakness - to improve, our physical therapists will perform initial evaluation of pt's status upon a dmission and devise an individualized program for Aquatic Therapy, Neuromuscular Reeducation, and Str engthening Achieving independence - to improve, our physical therapists will perform initial evaluation of pt's status upon admission and devise an individualized program for Community Reintegration Activities - Occupational Therapy Need for medicare 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 representative - to improve, our occupation therapists will perform initial evaluation of pt's status upon admission and devise an individualized program for Caregiver Training Weakness - to improve, our occupation therapists will perform initial evaluation of pt's status upon admission and devise an individualized program for Aquatic Therapy, Balance, Endurance, UE ROM, and UE strengthening - Other See attached MAR (Medication Administration Record) - Diet Type Continue Regular - Diet - Liquid Texture Continue Regular - Tube Feed Continue N/A - Weight Bearing Precaution WBAT right LE - Skin care per protocol - Diet - Solid Texture Continue Regular - Shower allowing shower FUNCTIONAL STATUS: UPDATED AT WEEKLY TEAM CONFERENCE - Bladder Same accident frequency: 7-Ind - No accidents in the past 7 days - Bowel Same accident frequency: 7-Ind - No accidents in the past 7 days - Walking Same score based on distance walked: 0(N/A) Same score based on distance walked: 1(<=50ft) - Wheelchair Same score based on distance traveled: 0(N/A) FUNCTIONAL STATUS: - Self-Care A. Eating Ind B. Grooming Ind C. Bathing Noe D. Dressing - Upper Noe E. Dressing - Lower modA F. Toileting Noe - Sphincter Control G. Bladder control Valentin H. Bowel control Valentin - Transfers Control I. Bed/Chair/Wheelchair Noe J. Toilet Noe K. Tub/Shower modA - Locomotion L. Walk/Wheelchair (B) Noe M. Stairs ADNO - Communication N. Comprehension (B) Ind O. Expression (B) Ind - Social Cognition P. Social Interaction Ind Q. Problem Solving Ind R. Memory Ind - Endurance Fair - Balance Fair - Safety Awareness Good QI SCORES: - Self-Care A. Eating 06-Independent B. Oral hygiene 03-Partial/moderate assistance C. Toileting hygiene 03-Partial/moderate assistance E. Shower/bathe self 02-Substantial/maximal assistance F. Upper body dressing 03-Partial/moderate assistance G. Lower body dressing 03-Partial/moderate assistance H. Putting on/taking off footwear 03-Partial/moderate assistance - Mobility A. Roll left and right 06-Independent B. Sit to lying 03-Partial/moderate assistance C. Lying to sitting on side of bed 03-Partial/moderate assistance D. Sit to stand 02-Substantial/maximal assistance E. Chair/fif-gh-telal transfer 03-Partial/moderate assistance F. Toilet transfer 03-Partial/moderate assistance G. Car transfer 88-Not attempted due to medical condition or safety concerns I. Walk 10 feet 88-Not attempted due to medical condition or safety concerns J. Walk 50 feet with two turns 88-Not attempted due to medical condition or safety concerns K. Walk 150 feet 88-Not attempted due to medical condition or safety concerns L. Walking 10 feet on uneven surfaces 88-Not attempted due to medical condition or safety concerns M. 1 step (curb) 88-Not attempted due to medical condition or safety concerns N. 4 steps 88-Not attempted due to medical condition or safety concerns O. 12 steps 88-Not attempted due to medical condition or safety concerns P. Picking up object 06-Independent R. Wheel 50 feet with two turns 88-Not attempted due to medical condition or safety concerns S. Wheel 150 feet 88-Not attempted due to medical condition or safety concerns - Bladder and Bowel Bladder continence 0-Always continent Bowel continence 0-Always continent - Endurance Fair - Balance Fair - Safety Awareness Fair CURRENT [facility]. DEFICITS: Endurance, Balance, Safety Awareness, Self-Care, and Mobility SIGNATURE PANEL: (CDT)
--- NOTE | 2019-12-09 00:36 | PN ---
Date of Progress Note: 12/08/2019 Subjective: The patient was seen this morning for followup. She was lying in bed, not in distress. She has been having some depression type of symptoms lately with her recent injury, fracture, surgery as well as not able to see any family because of the pandemic. She is having some problem with depression lately. I did offer her medication and she is willing to use it. Objective: Vital Signs: Reviewed. HEENT: Unremarkable. Lungs: Clear to auscultation. Heart: Sounds normal. Abdomen: Soft. Bowel sounds normal. No guarding, rigidity, tenderness, or distention. Extremities: No leg edema. Impression: 1. Constipation. 2. Depression. 3. Right femur fracture. 4. Asthma. Plan: We will continue current medication. The patient is on Eliquis, anticoagulation medication and I will see her tomorrow for followup. ALEXA/MODL Voice ID: [id number] Report ID: [id number] ERNST
[2019-12-09 07:12] LABS: Absolute Lymphocytes (CBC) 1.6 K/uL (0.7-4.9); Basophils % 0.6 % (0-1.3); Lymphocytes % 20.4 % (15.3-44.8); MPV 7.2 fL (7.6-11.3); RBC Red Blood Cell Count 2.91 M/uL (3.86-4.86)
[2019-12-09 07:49] LABS: Albumin 2.4 g/dL (3.4-5.0); BUN Blood Urea Nitrogen 15 mg/dL (7-18); Bicarbonate 31 mmol/L (21-32); Glucose Level 103 mg/dL (74-106); Magnesium 2.3 mg/dL (1.8-2.4); Potassium 4.1 mmol/L (3.5-5.1); Prealbumin 11.2 mg/dL (20-40); Sodium Level 143 mmol/L (136-145)
[2019-12-09] MEDS: AMLODIPINE 5 MG TAB PO SCH (08:00)
[2019-12-09] MEDS: DULERA 100/5 (MOMETASONE/FORMOTEROL) INHALER IH SCH ×2 (08:18→18:59)
[2019-12-09] MEDS: MONTELUKAST 10 MG TAB PO SCH (08:19)
[2019-12-09] MEDS: CRANBERRY FRUIT EXTRACT 200 MG CAP PO SCH ×2 (08:19→18:58)
[2019-12-09] MEDS: GABAPENTIN 300 MG CAP PO SCH ×2 (08:19→18:58)
[2019-12-09] MEDS: DULOXETINE 20 MG CAP PO SCH (08:19)
[2019-12-09] MEDS: ASCORBIC ACID 500 MG TABLET PO SCH (08:20)
[2019-12-09] MEDS: MAGNESIUM OXIDE 400 MG TAB PO SCH ×2 (08:20→18:58)
[2019-12-09] MEDS: FE SULF/FA/VIT B COMP & C TAB PO SCH (08:20)
[2019-12-09] MEDS: VITAMIN D 5,000 UNIT CAP PO SCH (08:20)
[2019-12-09] MEDS: APIXABAN 2.5 MG TABLET PO SCH ×2 (08:20→18:59)
[2019-12-09] MEDS: CIPROFLOXACIN HCL 500 MG TAB PO SCH ×2 (08:21→18:58)
[2019-12-09] MEDS: CODEINE 30MG/APAP 300MG TAB PO PRN ×3 (08:21→18:59)
[2019-12-09] MEDS: FERROUS SULFATE 325 MG TAB PO SCH (08:21)
[2019-12-09] MEDS: PROMOD 30 ML DOSE PO SCH ×2 (08:29→18:58)
[2019-12-09] MEDS: DOCUSATE NA/SENNA CONC 1 TAB PO SCH (19:00)
--- NOTE | 2019-12-10 01:44 | PN ---
Date of Progress Note: 12/09/2019 Subjective: The patient was seen this morning for followup. No new complaints or problems reported by her. She did have a bowel movement yesterday. Denies any abdominal pain, nausea, or vomiting. Objective: Vital Signs: Reviewed. HEENT: Unremarkable. Lungs: Clear to auscultation. Heart: Sounds normal. Abdomen: Soft, bowel sounds normal. No guarding, rigidity, tenderness, or distention. Extremities: No leg edema. Laboratory Data: White count 7.7, hemoglobin 8.8, and platelets 367. Sodium 143, potassium 4.1, chloride 106, bicarb 31, BUN 15, creatinine 0.51, and glucose 103. Impression: 1. Right leg fracture. 2. Anemia due to acute blood loss. 3. Hypertension. 4. Asthma. Plan: We will continue current medications, continue current anticoagulant therapy for DVT prophylaxis, Eliquis, pain medications will be continued and it has helped her very well for pain control. I will see her tomorrow for followup. ALEXA/ANDER Voice ID: [id number] Report ID: [id number]
[2019-12-10] MEDS: PROMOD 30 ML DOSE PO SCH ×2 (08:00→20:05)
[2019-12-10] MEDS: AMLODIPINE 5 MG TAB PO SCH (08:00)
[2019-12-10] MEDS: CRANBERRY FRUIT EXTRACT 200 MG CAP PO SCH ×2 (08:04→20:04)
[2019-12-10] MEDS: FERROUS SULFATE 325 MG TAB PO SCH (08:05)
[2019-12-10] MEDS: APIXABAN 2.5 MG TABLET PO SCH ×2 (08:05→20:05)
[2019-12-10] MEDS: DULOXETINE 20 MG CAP PO SCH (08:05)
[2019-12-10] MEDS: GABAPENTIN 300 MG CAP PO SCH ×2 (08:06→20:04)
[2019-12-10] MEDS: FE SULF/FA/VIT B COMP & C TAB PO SCH (08:29)
[2019-12-10] MEDS: MONTELUKAST 10 MG TAB PO SCH (08:29)
[2019-12-10] MEDS: CODEINE 30MG/APAP 300MG TAB PO PRN ×3 (08:29→21:29)
[2019-12-10] MEDS: ASCORBIC ACID 500 MG TABLET PO SCH (08:29)
[2019-12-10] MEDS: VITAMIN D 5,000 UNIT CAP PO SCH (08:30)
[2019-12-10] MEDS: CIPROFLOXACIN HCL 500 MG TAB PO SCH ×2 (08:30→20:04)
[2019-12-10] MEDS: MAGNESIUM OXIDE 400 MG TAB PO SCH ×2 (08:30→20:05)
[2019-12-10] MEDS: DULERA 100/5 (MOMETASONE/FORMOTEROL) INHALER IH SCH ×2 (08:31→20:05)
--- NOTE | 2019-12-10 09:38 | RAD REPORT ---
EXAM DESCRIPTION: RAD - Femur Right - 12/10/2019 8:41 am CLINICAL HISTORY: 11/27/19 s/p orif right femur COMPARISON: No comparisons FINDINGS: AP and cross-table lateral views were obtained. The 2 cross-table lateral views has signif icant motion degradation. Fracture hardware has been placed. Patient has a comminuted distal right femur fracture. Hardware is in good position. Fracture fragments are in anatomic alignment or near anatomic alignment. No pre abhilash gical imaging available to compare positioning of the bony structures. No acute or suspicious bony fi nding. IMPRESSION: Placement of fracture fixation hardware in good position. No suspicious or unexpected fi nding.
--- NOTE | 2019-12-10 09:48 | P.RH.PN ---
Estimated Length of Stay: 15 Expected Discharge Date: 12/16/19 Discharge Disposition Plan: Home Family Support: Yes Entry Level Sales Representative Goal: Mobility, Transfers, Self Care Vital Signs: Last Vital Signs Temp 98.4 F 12/10/19 07:49 Pulse 71 12/10/19 08:00 Resp 14 12/10/19 08:29 BP 115/68 12/10/19 08:00 Pulse Ox 95 12/10/19 08:29 Laboratory: Laboratory Last Values WBC 7.7 K/uL (4.3-10.9) 12/09/19 07:00 RBC 2.91 M/uL (3.86-4.86) L 12/09/19 07:00 Hgb 8.8 g/dL (12.0-15.0) L 12/09/19 07:00 Hct 26.0 % (36.0-45.0) L 12/09/19 07:00 MCV 89.5 fL (80-100) 12/09/19 07:00 MCH 30.4 pg (27.0-35.0) 12/09/19 07:00 MCHC 34.0 g/dL (32.0-36.0) 12/09/19 07:00 RDW 12.9 % (12.1-15.2) 12/09/19 07:00 Plt Count 367 K/uL (152-406) 12/09/19 07:00 MPV 7.2 fL (7.6-11.3) L 12/09/19 07:00 Neutrophils % 64.5 % (41.7-73.7) 12/09/19 07:00 Lymphocytes % 20.4 % (15.3-44.8) 12/09/19 07:00 Monocytes % 7.3 % (3.3-12.3) 12/09/19 07:00 Eosinophils % 7.2 % (0-4.4) H 12/09/19 07:00 Basophils % 0.6 % (0-1.3) 12/09/19 07:00 Absolute Neutrophils 4.9 K/uL (1.8-8.0) 12/09/19 07:00 Absolute Lymphocytes 1.6 K/uL (0.7-4.9) 12/09/19 07:00 Absolute Monocytes 0.6 K/uL (0.1-1.3) 12/09/19 07:00 Absolute Eosinophils 0.6 K/uL (0-0.5) H 12/09/19 07:00 Absolute Basophils 0.0 K/uL (0-0.5) 12/09/19 07:00 Sodium 143 mmol/L (136-145) 12/09/19 07:00 Potassium 4.1 mmol/L (3.5-5.1) 12/09/19 07:00 Chloride 106 mmol/L (98-107) 12/09/19 07:00 Carbon Dioxide 31 mmol/L (21-32) 12/09/19 07:00 BUN 15 mg/dL (7-18) 12/09/19 07:00 Creatinine 0.51 mg/dL (0.55-1.3) L 12/09/19 07:00 Estimated GFR > 90 mL/min (=/>90) 12/09/19 07:00 Glucose 103 mg/dL (74-106) 12/09/19 07:00 Calcium 8.2 mg/dL (8.5-10.1) L 12/09/19 07:00 Magnesium 2.3 mg/dL (1.8-2.4) D 12/09/19 07:00 Total Bilirubin 0.8 mg/dL (0.2-1.0) 12/04/19 17:54 AST 42 U/L (15-37) H 12/04/19 17:54 ALT 49 U/L (12-78) 12/04/19 17:54 Alkaline Phosphatase 173 U/L (45-117) H 12/04/19 17:54 Serum Total Protein 6.3 g/dL (6.4-8.2) L 12/04/19 17:54 Albumin 2.4 g/dL (3.4-5.0) L 12/09/19 07:00 Globulin 3.8 g/dL (2.3-3.5) H 12/04/19 17:54 Albumin/Globulin Ratio 0.7 (1.1-1.8) L 12/04/19 17:54 Prealbumin 11.2 mg/dL (20-40) L 12/09/19 07:00 TSH 0.922 uIU/mL (0.360-3.740) 12/04/19 17:54 Urine Color Dk yellow 12/05/19 05:20 Urine Appearance Clear 12/05/19 05:20 Urine pH 5.5 (5.0-7.0) 12/05/19 05:20 Ur Specific [place] 1.020 (1.005-1.030) 12/05/19 05:20 Glucose (UA)(Auto) Negative (NEG) 12/05/19 05:20 Urine Ketones Negative (NEG) 12/05/19 05:20 Urine Blood 1+ (NEG) H 12/05/19 05:20 Urine Nitrite Negative (NEG) 12/05/19 05:20 Urine Bilirubin Negative (NEG) 12/05/19 05:20 Urine Urobilinogen 1.0 mg/dL (0.2-1.0) 12/05/19 05:20 Ur Leukocyte Esterase 2+ (NEG) H 12/05/19 05:20 Urine RBC 10-20 /HPF (NONE SEEN) H 12/05/19 05:20 Urine WBC 20-50 /HPF (<5) H 12/05/19 05:20 Ur Squamous Epith Cells 5-10 /HPF (NONE SEEN) H 12/05/19 05:20 Urine Bacteria 20-50 /HPF (<20) H 12/05/19 05:20 Hyaline Casts Few /LPF (NONE SEEN) 12/03/19 03:15 Fine Granular Casts Few /LPF (NONE SEEN) 12/03/19 03:15 Urine Mucus 2+ /HPF (NONE SEEN) 12/03/19 03:15 Urine Culture Reflexed Not needed 12/05/19 05:20 Urine Total Protein Negative (NEG) 12/05/19 05:20 Weight: 214 lb 12.8 oz Wound Present: No Closed Surgical Incision Present: Yes Negative Pressure Wound Therapy Present: No Physician Update: Labs reviewed and are stable. Her pain is better managed. Her jenn will be removed today. She is doing well with physical and occupational therpy. She will likely require home health for perhaps 6 weeks. Functional Improvement: Patient progressing well w/ technique and safety awareness. Patient fatigues quickly when performing gait tx. Summary: Patient's care plan and care home goals have been reviewed and revised as necessary. Please see the Rehabilitation Signature page for all necessary signatures.
--- NOTE | 2019-12-10 13:23 | FAST ---
SHIFT START DATE/TIME: 12/10/2019 07:00 (CDT) SHIFT END DATE/TIME: 12/10/2019 19:00 (CDT) NAME BERTHA PARDO DATE OF : 1960 DATE OF ADMISSION: 12/02/2019 17:59 (CDT) PHONE: AGE: 58 N# [id number] GENDER: Female ENCOUNTER PHYSICIAN: Dr. Nick Romo M.D. ADMISSION DIAGNOSIS: - Orthopaedic Disorders 08 - Femur (Shaft) Fracture (08.2) RIGHT FEMUR FRACTURE. EATING: EATING - STEP 1: Does the patient complete the activity by him/herself with no assistance (physical, verbal/nonverbal cueing, setup/clean-up)? No. EATING - STEP 2: Does the patient need only setup/clean-up assistance from one helper? Yes. 1. [id number] ADMISSION PERFORMANCE: Setup or clean-up assistance CODE: 05 ORAL HYGIENE: ORAL HYGIENE - STEP 1: Does the patient complete the activity by him/herself with no assistance (physical, verbal/nonverbal cueing, setup/clean-up)? No. ORAL HYGIENE - STEP 2: Does the patient need only setup/clean-up assistance from one helper? No. ORAL HYGIENE - STEP 3: Does the patient need only verbal/nonverbal cueing or touching/steadying/contact guard assistance fro m one helper? Yes. 1. [id number] ADMISSION PERFORMANCE: Supervision or touching assistance CODE: 04 TOILETING HYGIENE: TOILETING HYGIENE - STEP 1: Does the patient complete the activity by him/herself with no assistance (physical, verbal/nonverbal cueing, setup/clean-up)? No. TOILETING HYGIENE - STEP 2: Does the patient need only setup/clean-up assistance from one helper? No. TOILETING HYGIENE - STEP 3: Does the patient need only verbal/nonverbal cueing or touching/steadying/contact guard assistance fro m one helper? Yes. 1. [id number] ADMISSION PERFORMANCE: Supervision or touching assistance CODE: 04 BATHING: Not assessed/no information CODE: - DRESSING - UPPER BODY: Not assessed/no information CODE: - DRESSING - LOWER BODY: Not assessed/no information CODE: - PUTTING ON/TAKING OFF FOOTWEAR: Not assessed/no information CODE: - ROLL LEFT AND RIGHT: Not assessed/no information CODE: - SIT TO LYING: SIT TO LYING - STEP 1: Does the patient complete the activity by him/herself with no assistance (physical, verbal/nonverbal cueing, setup/clean-up)? No. SIT TO LYING - STEP 2: Does the patient need only setup/clean-up assistance from one helper? No. SIT TO LYING - STEP 3: Does the patient need only verbal/nonverbal cueing or touching/steadying/contact guard assistance fro m one helper? Yes. 1. [id number] ADMISSION PERFORMANCE: Supervision or touching assistance CODE: 04 LYING TO SITTING: Not assessed/no information CODE: - SIT TO STAND: SIT TO STAND - STEP 1: Does the patient complete the activity by him/herself with no assistance (physical, verbal/nonverbal cueing, setup/clean-up)? No. SIT TO STAND - STEP 2: Does the patient need only setup/clean-up assistance from one helper? No. SIT TO STAND - STEP 3: Does the patient need only verbal/nonverbal cueing or touching/steadying/contact guard assistance fro m one helper? Yes. 1. [id number] ADMISSION PERFORMANCE: Supervision or touching assistance CODE: 04 TRANSFERS: BED, CHAIR: CHAIR/[id number] TRANSFER - STEP 1: Does the patient complete the activity by him/herself with no assistance (physical, verbal/nonverbal cueing, setup/clean-up)? No. CHAIR/[id number]-MM-SEEEO TRANSFER - STEP 2: Does the patient need only setup/clean-up assistance from one helper? Yes. 1. [id number] ADMISSION PERFORMANCE: Setup or clean-up assistance CODE: 05 TRANSFER TOILET: TOILET TRANSFER - STEP 1: Does the patient complete the activity by him/herself with no assistance (physical, verbal/nonverbal cueing, setup/clean-up)? No. TOILET TRANSFER - STEP 2: Does the patient need only setup/clean-up assistance from one helper? No. TOILET TRANSFER - STEP 3: Does the patient need only verbal/nonverbal cueing or touching/steadying/contact guard assistance fro m one helper? Yes. 1. [id number] ADMISSION PERFORMANCE: Supervision or touching assistance CODE: 04 TRANSFERS: CAR: Not assessed/no information CODE: - WALK 10 FEET: Not assessed/no information CODE: - 1 STEP (CURB): Not assessed/no information CODE: - PICKING UP OBJECT: Not assessed/no information CODE: - DOES THE PATIENT USE A WHEELCHAIR/SCOOTER? CODE: EXPR WHEEL 50 FEET WITH TWO TURNS: Not assessed/no information CODE: - INDICATE THE TYPE OF WHEELCHAIR/SCOOTER USED: CODE: EXPR WHEEL 150 FEET: Not assessed/no information CODE: - INDICATE THE TYPE OF WHEELCHAIR/SCOOTER USED: CODE: EXPR BLADDER AND BOWEL: H350. BLADDER CONTINENCE (3-DAY ASSESSMENT PERIOD): Always continent (no documented incontinence) CODE: 0 H400. BOWEL CONTINENCE (3-DAY ASSESSMENT PERIOD): Always continent CODE: 0 SIGNATURE PANEL: The following modified sections: 1. [id number] Admission Performance, 1. [id number] Admission Performance, 1. [id number] Admission Performance, 1. [id number] Admission Performance, 1. [id number] Admission Performance, 1. [id number] Admission Performance, 1. [id number] Admission Performance, Code, H350. Bladder Continence ( 3-day assessment period), H400. Bowel Continence (3-day assessment period) were [electronically] sign ed by Ezio Carson on FriDec 10 2019 13:22:02 GMT-0500 (Central Daylight Time)
[2019-12-10] MEDS: DOCUSATE NA/SENNA CONC 1 TAB PO SCH (20:06)
--- NOTE | 2019-12-11 00:41 | PN ---
Date of Progress Note: 12/10/2019 Subjective: The patient was seen this morning for followup. She was lying in bed, not in distress. Objective: Vital Signs: Reviewed. HEENT: Unremarkable. Lungs: Clear to auscultation. Heart: Sounds normal. Abdomen: Soft. Bowel sounds normal. No guarding, rigidity, tenderness, or distention. Extremities: No leg edema. Impression: 1.Right femur fracture. 2.Anemia due to acute blood loss. 3.Hypertension. 4.Asthma. Plan: Continue current medication. Per the patient's request, I did contact Dr. Singleton, from [facility] and requested him to provide consultation and postoperative management for the patient sin ce she does not wish to go back to [facility] for her postoperative care. Dr. Singleton w as nice enough to accept care on this patient for postoperative management and he was consulted and w e appreciate his help. We will continue to follow up with him and Dr. Romo will provide physical therapy. I will see her tomorrow. ALEXA/MODL Voice ID: [id number] Report ID: [id number]
[2019-12-11 07:24] LABS: Albumin 2.6 g/dL (3.4-5.0); Bilirubin Direct 0.1 mg/dL (0-0.2); Bilirubin Total 0.4 mg/dL (0.2-1.0); Protein, Total 6.3 g/dL (6.4-8.2)
[2019-12-11] MEDS: ASCORBIC ACID 500 MG TABLET PO SCH (07:31)
[2019-12-11] MEDS: MONTELUKAST 10 MG TAB PO SCH (07:31)
[2019-12-11] MEDS: FE SULF/FA/VIT B COMP & C TAB PO SCH (07:31)
[2019-12-11] MEDS: CRANBERRY FRUIT EXTRACT 200 MG CAP PO SCH ×2 (07:31→19:51)
[2019-12-11] MEDS: GABAPENTIN 300 MG CAP PO SCH ×2 (07:31→19:51)
[2019-12-11] MEDS: VITAMIN D 5,000 UNIT CAP PO SCH (07:31)
[2019-12-11] MEDS: CIPROFLOXACIN HCL 500 MG TAB PO SCH ×2 (07:31→19:51)
[2019-12-11] MEDS: DULOXETINE 20 MG CAP PO SCH (07:31)
[2019-12-11] MEDS: APIXABAN 2.5 MG TABLET PO SCH ×2 (07:32→19:51)
[2019-12-11] MEDS: PROMOD 30 ML DOSE PO SCH ×2 (07:32→19:59)
[2019-12-11] MEDS: DULERA 100/5 (MOMETASONE/FORMOTEROL) INHALER IH SCH ×2 (07:32→19:57)
[2019-12-11] MEDS: FERROUS SULFATE 325 MG TAB PO SCH (07:32)
[2019-12-11] MEDS: AMLODIPINE 5 MG TAB PO SCH (07:32)
[2019-12-11] MEDS: MAGNESIUM OXIDE 400 MG TAB PO SCH ×2 (07:32→19:52)
[2019-12-11] MEDS: CODEINE 30MG/APAP 300MG TAB PO PRN ×2 (07:57→19:50)
--- NOTE | 2019-12-11 12:27 | PN ---
Date of Progress Note: 12/11/2019 Subjective: The patient was seen this morning for followup. She was sitting in the chair. Denied a ny complaints. Does not had a bowel movement for now 2-3 days. Denies any abdominal pain, nausea, v omiting. No wheezing. No shortness of breath. She is using her inhaler as suggested. Objective: Vital Signs: Reviewed. HEENT: Unremarkable. Lungs: Clear to auscultation. No rhonchi or rales. Heart: Sounds normal. Abdomen: Soft. Bowel sounds normal. No guarding, rigidity, tenderness, distention. Extremities: No leg edema. Impression: 1.Right femur fracture. 2.Anemia due to acute blood loss. 3.Hypertension. 4.Asthma. Plan: Continue current medications. Continue current inhaler, antihypertensive medication, DVT prop hylaxis, and pain medication per order. The patient has not taken her stool softener. Senokot as pe r order. I have advised her to take 2 tablets at bedtime every day and if necessary, we will conside r Dulcolax suppository in next day or 2 days. ALEXA/MODL Voice ID: [id number] Report ID: [id number]
--- NOTE | 2019-12-11 15:39 | FAST ---
SHIFT START DATE/TIME: 12/11/2019 07:00 (CDT) SHIFT END DATE/TIME: 12/11/2019 19:00 (CDT) NAME BERTHA PARDO DATE OF : 1960 DATE OF ADMISSION: 12/02/2019 17:59 (CDT) PHONE: AGE: 58 N# [id number] GENDER: Female ENCOUNTER PHYSICIAN: Dr. Nick Romo M.D. ADMISSION DIAGNOSIS: - Orthopaedic Disorders 08 - Femur (Shaft) Fracture (08.2) RIGHT FEMUR FRACTURE. EATING: EATING - STEP 1: Does the patient complete the activity by him/herself with no assistance (physical, verbal/nonverbal cueing, setup/clean-up)? No. EATING - STEP 2: Does the patient need only setup/clean-up assistance from one helper? Yes. 1. [id number] ADMISSION PERFORMANCE: Setup or clean-up assistance CODE: 05 ORAL HYGIENE: ORAL HYGIENE - STEP 1: Does the patient complete the activity by him/herself with no assistance (physical, verbal/nonverbal cueing, setup/clean-up)? No. ORAL HYGIENE - STEP 2: Does the patient need only setup/clean-up assistance from one helper? Yes. 1. [id number] ADMISSION PERFORMANCE: Setup or clean-up assistance CODE: 05 TOILETING HYGIENE: TOILETING HYGIENE - STEP 1: Does the patient complete the activity by him/herself with no assistance (physical, verbal/nonverbal cueing, setup/clean-up)? No. TOILETING HYGIENE - STEP 2: Does the patient need only setup/clean-up assistance from one helper? Yes. 1. [id number] ADMISSION PERFORMANCE: Setup or clean-up assistance CODE: 05 BATHING: Not assessed/no information CODE: - DRESSING - UPPER BODY: DRESSING - UPPER BODY - STEP 1: Does the patient complete the activity by him/herself with no assistance (physical, verbal/nonverbal cueing, setup/clean-up)? No. DRESSING - UPPER BODY - STEP 2: Does the patient need only setup/clean-up assistance from one helper? Yes. 1. [id number] ADMISSION PERFORMANCE: Setup or clean-up assistance CODE: 05 DRESSING - LOWER BODY: DRESSING - LOWER BODY - STEP 1: Does the patient complete the activity by him/herself with no assistance (physical, verbal/nonverbal cueing, setup/clean-up)? No. DRESSING - LOWER BODY - STEP 2: Does the patient need only setup/clean-up assistance from one helper? No. DRESSING - LOWER BODY - STEP 3: Does the patient need only verbal/nonverbal cueing or touching/steadying/contact guard assistance fro m one helper? Yes. 1. [id number] ADMISSION PERFORMANCE: Supervision or touching assistance CODE: 04 PUTTING ON/TAKING OFF FOOTWEAR: Not assessed/no information CODE: - ROLL LEFT AND RIGHT: ROLL LEFT AND RIGHT - STEP 1: Does the patient complete the activity by him/herself with no assistance (physical, verbal/nonverbal cueing, setup/clean-up)? No. ROLL LEFT AND RIGHT - STEP 2: Does the patient need only setup/clean-up assistance from one helper? No. ROLL LEFT AND RIGHT - STEP 3: Does the patient need only verbal/nonverbal cueing or touching/steadying/contact guard assistance fro m one helper? Yes. 1. [id number] ADMISSION PERFORMANCE: Supervision or touching assistance CODE: 04 SIT TO LYING: SIT TO LYING - STEP 1: Does the patient complete the activity by him/herself with no assistance (physical, verbal/nonverbal cueing, setup/clean-up)? No. SIT TO LYING - STEP 2: Does the patient need only setup/clean-up assistance from one helper? Yes. 1. [id number] ADMISSION PERFORMANCE: Setup or clean-up assistance CODE: 05 LYING TO SITTING: LYING TO SITTING ON SIDE OF BED - STEP 1: Does the patient complete the activity by him/herself with no assistance (physical, verbal/nonverbal cueing, setup/clean-up)? No. LYING TO SITTING ON SIDE OF BED - STEP 2: Does the patient need only setup/clean-up assistance from one helper? No. LYING TO SITTING ON SIDE OF BED - STEP 3: Does the patient need only verbal/nonverbal cueing or touching/steadying/contact guard assistance fro m one helper? Yes. 1. [id number] ADMISSION PERFORMANCE: Supervision or touching assistance CODE: 04 SIT TO STAND: SIT TO STAND - STEP 1: Does the patient complete the activity by him/herself with no assistance (physical, verbal/nonverbal cueing, setup/clean-up)? No. SIT TO STAND - STEP 2: Does the patient need only setup/clean-up assistance from one helper? Yes. 1. [id number] ADMISSION PERFORMANCE: Setup or clean-up assistance CODE: 05 TRANSFERS: BED, CHAIR: CHAIR/[id number] TRANSFER - STEP 1: Does the patient complete the activity by him/herself with no assistance (physical, verbal/nonverbal cueing, setup/clean-up)? No. CHAIR/[id number] TRANSFER - STEP 2: Does the patient need only setup/clean-up assistance from one helper? Yes. 1. [id number] ADMISSION PERFORMANCE: Setup or clean-up assistance CODE: 05 TRANSFER TOILET: TOILET TRANSFER - STEP 1: Does the patient complete the activity by him/herself with no assistance (physical, verbal/nonverbal cueing, setup/clean-up)? No. TOILET TRANSFER - STEP 2: Does the patient need only setup/clean-up assistance from one helper? No. TOILET TRANSFER - STEP 3: Does the patient need only verbal/nonverbal cueing or touching/steadying/contact guard assistance fro m one helper? Yes. 1. [id number] ADMISSION PERFORMANCE: Supervision or touching assistance CODE: 04 TRANSFERS: CAR: Not assessed/no information CODE: - WALK 10 FEET: Not assessed/no information CODE: - 1 STEP (CURB): Not assessed/no information CODE: - PICKING UP OBJECT: Not assessed/no information CODE: - DOES THE PATIENT USE A WHEELCHAIR/SCOOTER? Q1. DOES THE PATIENT USE A WHEELCHAIR/SCOOTER?: Yes CODE: 1 WHEEL 50 FEET WITH TWO TURNS: WHEEL 50 FEET WITH TWO TURNS - STEP 1: Does the patient complete the activity by him/herself with no assistance (physical, verbal/nonverbal cueing, setup/clean-up)? No. WHEEL 50 FEET WITH TWO TURNS - STEP 2: Does the patient need only setup/clean-up assistance from one helper? Yes. 1. [id number] ADMISSION PERFORMANCE: Setup or clean-up assistance CODE: 05 INDICATE THE TYPE OF WHEELCHAIR/SCOOTER USED: RR1. INDICATE THE TYPE OF WHEELCHAIR/SCOOTER USED.: Manual CODE: 1 WHEEL 150 FEET: WHEEL 150 FEET - STEP 1: Does the patient complete the activity by him/herself with no assistance (physical, verbal/nonverbal cueing, setup/clean-up)? No. WHEEL 150 FEET - STEP 2: Does the patient need only setup/clean-up assistance from one helper? Yes. 1. [id number] ADMISSION PERFORMANCE: Setup or clean-up assistance CODE: 05 INDICATE THE TYPE OF WHEELCHAIR/SCOOTER USED: SS1. INDICATE THE TYPE OF WHEELCHAIR/SCOOTER USED.: Manual CODE: 1 BLADDER AND BOWEL: H350. BLADDER CONTINENCE (3-DAY ASSESSMENT PERIOD): Always continent (no documented incontinence) CODE: 0 H400. BOWEL CONTINENCE (3-DAY ASSESSMENT PERIOD): Always continent CODE: 0 SIGNATURE PANEL: The following modified sections: 1. [id number] Admission Performance, 1. FN9720S Admission Performance, 1. [id number] Admission Performance, 1. GA5374L Admission Performance, 1. JM8675e Admission Performance, 1. RM4974w Admission Performance, 1. TX2669V Admission Performance, 1. OW3232Y Admission Performance , 1. SN1434Q Admission Performance, 1. ZF0052R Admission Performance, 1. HY0922T Admission Performanc e, 1. XD1519J Admission Performance, 1. [id number] Admission Performance, 1. [id number] Admission Performan ce, Q1. Does the patient use a wheelchair/scooter?, 1. QT4049V Admission Performance, RR1. Indicate t he type of wheelchair/scooter used., 1. QG2734G Admission Performance, Code, SS1. Indicate the type o f wheelchair/scooter used., H350. Bladder Continence (3-day assessment period), H400. Bowel Continenc e (3-day assessment period) were [electronically] signed by Nataly Onofre C.N.A. on Sat Dec 11 2019 1 5:38:36 T-0500 (Central Daylight Time)
[2019-12-11] MEDS: DOCUSATE NA/SENNA CONC 1 TAB PO SCH (19:51)
[2019-12-12] MEDS: AMLODIPINE 5 MG TAB PO SCH (08:00)
[2019-12-12] MEDS: GABAPENTIN 300 MG CAP PO SCH ×2 (08:14→19:36)
[2019-12-12] MEDS: ASCORBIC ACID 500 MG TABLET PO SCH (08:14)
[2019-12-12] MEDS: MAGNESIUM OXIDE 400 MG TAB PO SCH ×2 (08:14→19:36)
[2019-12-12] MEDS: MONTELUKAST 10 MG TAB PO SCH (08:14)
[2019-12-12] MEDS: CRANBERRY FRUIT EXTRACT 200 MG CAP PO SCH ×2 (08:14→19:36)
[2019-12-12] MEDS: FERROUS SULFATE 325 MG TAB PO SCH (08:14)
[2019-12-12] MEDS: FE SULF/FA/VIT B COMP & C TAB PO SCH (08:15)
[2019-12-12] MEDS: VITAMIN D 5,000 UNIT CAP PO SCH (08:15)
[2019-12-12] MEDS: DULOXETINE 20 MG CAP PO SCH (08:15)
[2019-12-12] MEDS: APIXABAN 2.5 MG TABLET PO SCH ×2 (08:15→19:36)
[2019-12-12] MEDS: CIPROFLOXACIN HCL 500 MG TAB PO SCH ×2 (08:15→19:36)
[2019-12-12] MEDS: DULERA 100/5 (MOMETASONE/FORMOTEROL) INHALER IH SCH ×2 (08:17→19:36)
[2019-12-12] MEDS: PROMOD 30 ML DOSE PO SCH ×2 (08:18→19:36)
--- NOTE | 2019-12-12 16:10 | PN ---
Date of Progress Note: 12/12/2019 Subjective: Patient was seen this morning for followup. She was sitting in the wheelchair. Denied any complaints. Had small bowel movement last night. Objective: HEENT: Unremarkable. Lungs: Clear to auscultation. Heart: Sounds normal. Abdomen: Soft. Bowel sounds normal. No guarding, rigidity, tenderness, distention. Extremities: No leg edema. Impression: 1.Right femur fracture. 2.Hypertension. 3.Asthma. 4.Anemia due to acute blood loss. Plan: We will continue current antihypertensive medication. Continue current inhaler for her asthma management. Continue Senokot-S for her constipation problem. We will continue iron supplement and monitor blood work sometime next week. Pain medication seems to help her control her pain very well and she is having less and less pain as the time goes on. We will continue anticoagulation therapy f or DVT prophylaxis. ALEXA/MODL Voice ID: [id number] Report ID: [id number]
[2019-12-12] MEDS: DOCUSATE NA/SENNA CONC 1 TAB PO SCH (19:59)
[2019-12-13] MEDS: CIPROFLOXACIN HCL 500 MG TAB PO SCH (07:27)
[2019-12-13] MEDS: MONTELUKAST 10 MG TAB PO SCH (07:27)
[2019-12-13] MEDS: DULERA 100/5 (MOMETASONE/FORMOTEROL) INHALER IH SCH ×2 (07:28→19:09)
[2019-12-13] MEDS: ASCORBIC ACID 500 MG TABLET PO SCH (07:28)
[2019-12-13] MEDS: GABAPENTIN 300 MG CAP PO SCH ×2 (07:28→19:09)
[2019-12-13] MEDS: PROMOD 30 ML DOSE PO SCH ×2 (07:28→19:10)
[2019-12-13] MEDS: CRANBERRY FRUIT EXTRACT 200 MG CAP PO SCH ×2 (07:28→19:09)
[2019-12-13] MEDS: MAGNESIUM OXIDE 400 MG TAB PO SCH ×2 (07:29→19:09)
[2019-12-13] MEDS: FERROUS SULFATE 325 MG TAB PO SCH (07:29)
[2019-12-13] MEDS: VITAMIN D 5,000 UNIT CAP PO SCH (07:29)
[2019-12-13] MEDS: DULOXETINE 20 MG CAP PO SCH (07:30)
[2019-12-13] MEDS: APIXABAN 2.5 MG TABLET PO SCH ×2 (07:30→19:09)
[2019-12-13] MEDS: AMLODIPINE 5 MG TAB PO SCH (07:31)
[2019-12-13] MEDS: FE SULF/FA/VIT B COMP & C TAB PO SCH (07:32)
[2019-12-13] MEDS: CODEINE 30MG/APAP 300MG TAB PO PRN ×2 (07:53→16:05)
--- NOTE | 2019-12-13 18:57 | R.PN ---
ENCOUNTER DATE AND TIME: 12/13/2019 18:53 (CDT) NAME BERTHA PARDO DATE OF : 1960 DATE OF ADMISSION: 12/02/2019 17:59 (CDT) RIGHT FEMUR FRACTURECHIEF COMPLAINT: Right hip fracture SUBJECTIVE: Pt denied any depression. Pt denied any Shortness of Breath. She is COVID-19 negative. Her right hip pain is controlled. She ambulated 220 feet with a rolling wal ker and contact guard assistance. WBC 7.7, Hgb 8.8, prealbumin 11.2. Calcium is low at 8.2. She is medically managed by . UA and culture showed mixed raegan. She will followup with ortho Dr. Verdugo after discharge. Her pain is managed. She is taking a stool softener. Mobilized wheelchair 250' with independence. Ambulated 100' with contact guard assistance using a ro lling walker. VITAL SIGNS Temperature: 97.6 F SBP/DBP: 118/73 Pulse: 67 Resp: 16 MEDICATION ALLERGIES: No Known Drug Allergies (NKDA) ENVIRONMENTAL ALLERGIES: - Substance Allergies None Known - Other Allergies None Known NURSING: - Shower allowing shower - Skin care per protocol PRECAUTIONS: - Weight Bearing Precaution WBAT right LE ACTIVITIES OOB only with supervision THERAPIES: - Dietary and Nutrition Adequate Nutrition. Nutritional Education. Nutritional Supplements. PHYSICAL EXAM - Gen Alert and awake Lying in bed No apparent distress Oriented to: person, time, and place - Skin No skin breakdown. Normacephalic - Eyes No abnormalities - ENMT No abnormalities - Neck No abnormalities - CVS RRR - Chest No abnormalities - Resp Clear to auscultation - Abd Soft - GI Non distended Deferred - No abnormalities - Ext Right hip surgical site has good hemostasis. - MSK 4+/5 weakness in right lower extremity - Neuro 4/5 strength right lower extremity. - Psych No abnormalities ASSESSMENT: Pt. is a 58 yo Right-handed white female.On 11/27/2019 she was admitted to [facility] with diagno sis RIGHT FEMUR FRACTURE.Her impairment category is Orthopaedic Disorders 08 - Femur (Shaft) Fractur e (08.2).Pre-morbidly, Pt. was independent/mod-I in Communication, Self-Care, Transfers Control, Safe ty Awareness, Balance, and Social Cognition; and she had good Locomotion and Sphincter Control.Curren tly, she has deficits of Endurance, Locomotion, Balance, and Safety Awareness.Pt. is now referred to [facility] for acute in-patient rehabilitation in order to maximize patient's functional independence in activities of daily living, strength, ROM, and mobility.- Rehab Goal Patient has realistic goal of being discharged at assistance level 6-Valentin to reside at Home with Fam aurora/Relatives. MDM/PLAN: - Physical Therapy Decreased range of motion - to improve, our physical therapists will perform initial evaluation of p t's status upon admission and devise an individualized program for increasing patient's Range of Sj on. Gait dysfunction - to improve, our physical therapists will perform initial evaluation of pt's statu s upon admission and devise an individualized program for Gait Training, and Wheel Chair mobility Need for home safety evaluation - to improve, our physical therapists will perform initial evaluatio n of pt's status upon admission and devise an individualized program for Home Evaluation Need in caregiver upon discharge - to improve, our physical therapists will perform initial evaluati on of pt's status upon admission and devise an individualized program for Caregiver Training New precaution - to improve, our physical therapists will perform initial evaluation of pt's status upon admission and devise an individualized program for Patient precaution education Poor balance - to improve, our physical therapists will perform initial evaluation of pt's status up on admission and devise an individualized program for Balance Training Poor endurance - to improve, our physical therapists will perform initial evaluation of pt's status upon admission and devise an individualized program for Endurance Training Weakness - to improve, our physical therapists will perform initial evaluation of pt's status upon a dmission and devise an individualized program for Aquatic Therapy, Neuromuscular Reeducation, and Str engthening Achieving independence - to improve, our physical therapists will perform initial evaluation of pt's status upon admission and devise an individualized program for Community Reintegration Activities - Occupational Therapy Need for patient care specialist - to improve, our occupation therapists will perform initial evaluation of pt's status upon admission and devise an individualized program for Caregiver Training Weakness - to improve, our occupation therapists will perform initial evaluation of pt's status upon admission and devise an individualized program for Aquatic Therapy, Balance, Endurance, UE ROM, and UE strengthening - Other See attached MAR (Medication Administration Record) - Diet Type Continue Regular - Diet - Liquid Texture Continue Regular - Tube Feed Continue N/A - Weight Bearing Precaution WBAT right LE - Skin care per protocol - Diet - Solid Texture Continue Regular - Shower allowing shower FUNCTIONAL STATUS: UPDATED AT WEEKLY TEAM CONFERENCE - Bladder Same accident frequency: 7-Ind - No accidents in the past 7 days - Bowel Same accident frequency: 7-Ind - No accidents in the past 7 days - Walking Same score based on distance walked: 0(N/A) Same score based on distance walked: 1(<=50ft) - Wheelchair Same score based on distance traveled: 0(N/A) FUNCTIONAL STATUS: - Self-Care A. Eating Ind B. Grooming Ind C. Bathing Noe D. Dressing - Upper Noe E. Dressing - Lower modA F. Toileting Noe - Sphincter Control G. Bladder control Valentin H. Bowel control Valentin - Transfers Control I. Bed/Chair/Wheelchair Noe J. Toilet Noe K. Tub/Shower modA - Locomotion L. Walk/Wheelchair (B) Noe M. Stairs ADNO - Communication N. Comprehension (B) Ind O. Expression (B) Ind - Social Cognition P. Social Interaction Ind Q. Problem Solving Ind R. Memory Ind - Endurance Fair - Balance Fair - Safety Awareness Good QI SCORES: - Self-Care A. Eating 06-Independent B. Oral hygiene 03-Partial/moderate assistance C. Toileting hygiene 03-Partial/moderate assistance E. Shower/bathe self 02-Substantial/maximal assistance F. Upper body dressing 03-Partial/moderate assistance G. Lower body dressing 03-Partial/moderate assistance H. Putting on/taking off footwear 03-Partial/moderate assistance - Mobility A. Roll left and right 06-Independent B. Sit to lying 03-Partial/moderate assistance C. Lying to sitting on side of bed 03-Partial/moderate assistance D. Sit to stand 02-Substantial/maximal assistance E. Chair/moj-lp-hietv transfer 03-Partial/moderate assistance F. Toilet transfer 03-Partial/moderate assistance G. Car transfer 88-Not attempted due to medical condition or safety concerns I. Walk 10 feet 88-Not attempted due to medical condition or safety concerns J. Walk 50 feet with two turns 88-Not attempted due to medical condition or safety concerns K. Walk 150 feet 88-Not attempted due to medical condition or safety concerns L. Walking 10 feet on uneven surfaces 88-Not attempted due to medical condition or safety concerns M. 1 step (curb) 88-Not attempted due to medical condition or safety concerns N. 4 steps 88-Not attempted due to medical condition or safety concerns O. 12 steps 88-Not attempted due to medical condition or safety concerns P. Picking up object 06-Independent R. Wheel 50 feet with two turns 88-Not attempted due to medical condition or safety concerns S. Wheel 150 feet 88-Not attempted due to medical condition or safety concerns - Bladder and Bowel Bladder continence 0-Always continent Bowel continence 0-Always continent - Endurance Fair - Balance Fair - Safety Awareness Fair [facility] DEFICITS: Endurance, Balance, Safety Awareness, Self-Care, and Mobility SIGNATURE PANEL: (CDT)
[2019-12-13] MEDS: DOCUSATE NA/SENNA CONC 1 TAB PO SCH (19:09)
--- NOTE | 2019-12-13 21:35 | CON ---
Date of Consultation: 12/10/2019 Reason For Consultation: Right distal femur fracture. History Of Present Illness: Ms. Shaikh is a 58-year-old female who presented to the rehab unit with history of a right open distal femur fracture. She underwent irrigation, debridement, and open reduc tion, internal fixation on November 27, 2019 in [place], [place]. She was transferred postoperatively to our rehab unit for further rehabilitation and aiding with mobilization. She denies any fever or chills a t this time. She will need a local orthopedic surgeon to continue to follow her postoperative care. She reports her pain is well controlled. She is nonweightbearing and was instructed that she would likely be nonweightbearing for 12 weeks. She denies any other musculoskeletal complaints at this formerly [facility]. Review of Systems: As above, otherwise negative. Allergies: INCLUDES, CEFACLOR, IODINE, AND STRAWBERRY. Medications: Per medication reconciliation. Social History: Denies tobacco or alcohol use. Past Medical History: Includes hypertension, asthma, hyperlipidemia, lumbar spinal stenosis, and fas ting glucose. Past Surgical History: Includes a gastric sleeve surgery, tonsillectomy, , cholecystectomy, and right leg surgery for her recent right distal femoral fracture. Physical Examination: General: No apparent distress. HEENT: Normocephalic, atraumatic. Neck: Supple. Cardiovascular: Brisk cap refill to all digits. Chest: Nonlabored breathing. Abdomen: Nondistended. Psychiatric: Response to exam. Musculoskeletal: Right lower extremity, she has positive firing of EHL, FHL, gastrocsoleus complex, tibialis anterior. Incision is healing with no significant erythema or purulent drainage. Jenn i n place over the lateral knee and over the anterior aspect of the distal femur with open injury occur red. X-rays: X-rays of the right femur demonstrate a healing right distal femur fracture status post ORIF with overall good alignment of hardware and fracture with no signs of hardware loosening or failure. Assessment And Plan: Ms. Shaikh is a 58-year-old female, status post I and D and open reduction and internal fixation of her right distal femoral fracture. Plan: She will have her jenn removed at 2 weeks postoperatively. She will continue to remain non weightbearing of her right lower extremity. X-rays today demonstrate overall good alignment of her f racture. She may follow up in my clinic in 1 month for reevaluation and repeat x-rays of her right f emur. CV/MODL Voice ID: [id number] Report ID: [id number]
--- NOTE | 2019-12-14 00:40 | PN ---
Date of Progress Note: 12/13/2019 Subjective: The patient was seen this morning for followup. Denied any complaints this morning. Sh e slept very well last night. Objective: Vital Signs: Reviewed. HEENT: Unremarkable. Lungs: Clear to auscultation. Heart: Sounds normal. Abdomen: Soft. Bowel sounds normal. No guarding, rigidity, tenderness, distention. Extremities: No leg edema. Laboratory Data: No new labs this morning. Impression: 1.Urinary tract infection. 2.Hypertension. 3.Asthma. 4.Anemia due to acute blood loss. 5.Constipation. Plan: We will continue current stool softener. Continue current antihypertensive medication and inh aler. Continue DVT prophylaxis. The patient has been on Cipro for last 8 days for urinary tract inf ection. Urine culture has not grown any specific bacteria and we will go ahead and discontinue her C ipro today. ALEXA/MODL Voice ID: [id number] Report ID: [id number]
[2019-12-14] MEDS ORDERED: ALBUTEROL 2.5 MG/3 ML NEB SOL NEB PRN (08:00)
[2019-12-14] MEDS: GABAPENTIN 300 MG CAP PO SCH ×2 (08:10→19:40)
[2019-12-14] MEDS: CODEINE 30MG/APAP 300MG TAB PO PRN ×3 (08:11→19:40)
[2019-12-14] MEDS: FE SULF/FA/VIT B COMP & C TAB PO SCH (08:12)
[2019-12-14] MEDS: FERROUS SULFATE 325 MG TAB PO SCH (08:12)
[2019-12-14] MEDS: MONTELUKAST 10 MG TAB PO SCH (08:14)
[2019-12-14] MEDS: ASCORBIC ACID 500 MG TABLET PO SCH (08:14)
[2019-12-14] MEDS: APIXABAN 2.5 MG TABLET PO SCH ×2 (08:14→19:40)
[2019-12-14] MEDS: DULOXETINE 20 MG CAP PO SCH (08:14)
[2019-12-14] MEDS: VITAMIN D 5,000 UNIT CAP PO SCH (08:15)
[2019-12-14] MEDS: AMLODIPINE 5 MG TAB PO SCH (08:15)
[2019-12-14] MEDS: CRANBERRY FRUIT EXTRACT 200 MG CAP PO SCH ×2 (08:17→19:40)
[2019-12-14] MEDS: MAGNESIUM OXIDE 400 MG TAB PO SCH ×2 (08:18→19:40)
[2019-12-14] MEDS: DULERA 100/5 (MOMETASONE/FORMOTEROL) INHALER IH SCH ×2 (08:19→19:41)
[2019-12-14] MEDS: PROMOD 30 ML DOSE PO SCH ×2 (08:19→19:41)
--- NOTE | 2019-12-14 19:12 | R.PN ---
ENCOUNTER DATE AND TIME: 12/14/2019 19:09 (CDT) NAME BERTHA PARDO DATE OF : 1960 DATE OF ADMISSION: 12/02/2019 17:59 (CDT) RIGHT FEMUR FRACTURECHIEF COMPLAINT: Right hip fracture SUBJECTIVE: Pt denied any depression. Pt denied any Shortness of Breath. She is COVID-19 negative. Her right hip pain is controlled. She ambulated 220 feet with a rolling wal ker and contact guard assistance. WBC 7.7, Hgb 8.8, prealbumin 11.2. Calcium is low at 8.2. She is medically managed by . UA and culture showed mixed raegan. She will followup with ortho Dr. Verdugo after discharge. Her pain is managed. She is taking a stool softener. Mobilized wheelchair 850' with independence. Ambulated 110' with contact guard assistance using a ro lling walker. VITAL SIGNS Temperature: 98.1 F SBP/DBP: 148/76 Pulse: 68 Resp: 16 MEDICATION ALLERGIES: No Known Drug Allergies (NKDA) ENVIRONMENTAL ALLERGIES: - Substance Allergies None Known - Other Allergies None Known NURSING: - Shower allowing shower - Skin care per protocol PRECAUTIONS: - Weight Bearing Precaution WBAT right LE ACTIVITIES OOB only with supervision THERAPIES: - Dietary and Nutrition Adequate Nutrition. Nutritional Education. Nutritional Supplements. PHYSICAL EXAM - Gen Alert and awake Lying in bed No apparent distress Oriented to: person, time, and place - Skin No skin breakdown. Normacephalic - Eyes No abnormalities - ENMT No abnormalities - Neck No abnormalities - CVS RRR - Chest No abnormalities - Resp Clear to auscultation - Abd Soft - GI Non distended Deferred - No abnormalities - Ext Right hip surgical site has good hemostasis. - MSK 4+/5 weakness in right lower extremity - Neuro 4/5 strength right lower extremity. - Psych No abnormalities ASSESSMENT: Pt. is a 58 yo Right-handed white female.On 11/27/2019 she was admitted to [facility] with diagno sis RIGHT FEMUR FRACTURE.Her impairment category is Orthopaedic Disorders 08 - Femur (Shaft) Fractur e (08.2).Pre-morbidly, Pt. was independent/mod-I in Communication, Self-Care, Transfers Control, Safe ty Awareness, Balance, and Social Cognition; and she had good Locomotion and Sphincter Control.Curren tly, she has deficits of Endurance, Locomotion, Balance, and Safety Awareness.Pt. is now referred to [facility] for acute in-patient rehabilitation in order to maximize patient's functional independence in activities of daily living, strength, ROM, and mobility.- Rehab Goal Patient has realistic goal of being discharged at assistance level 6-Valentin to reside at Home with Fam aurora/Relatives. MDM/PLAN: - Physical Therapy Decreased range of motion - to improve, our physical therapists will perform initial evaluation of p t's status upon admission and devise an individualized program for increasing patient's Range of Sj on. Gait dysfunction - to improve, our physical therapists will perform initial evaluation of pt's statu s upon admission and devise an individualized program for Gait Training, and Wheel Chair mobility Need for home safety evaluation - to improve, our physical therapists will perform initial evaluatio n of pt's status upon admission and devise an individualized program for Home Evaluation Need in caregiver upon discharge - to improve, our physical therapists will perform initial evaluati on of pt's status upon admission and devise an individualized program for Caregiver Training New precaution - to improve, our physical therapists will perform initial evaluation of pt's status upon admission and devise an individualized program for Patient precaution education Poor balance - to improve, our physical therapists will perform initial evaluation of pt's status up on admission and devise an individualized program for Balance Training Poor endurance - to improve, our physical therapists will perform initial evaluation of pt's status upon admission and devise an individualized program for Endurance Training Weakness - to improve, our physical therapists will perform initial evaluation of pt's status upon a dmission and devise an individualized program for Aquatic Therapy, Neuromuscular Reeducation, and Str engthening Achieving independence - to improve, our physical therapists will perform initial evaluation of pt's status upon admission and devise an individualized program for Community Reintegration Activities - Occupational Therapy Need for home care nurse - to improve, our occupation therapists will perform initial evaluation of pt's status upon admission and devise an individualized program for Caregiver Training Weakness - to improve, our occupation therapists will perform initial evaluation of pt's status upon admission and devise an individualized program for Aquatic Therapy, Balance, Endurance, UE ROM, and UE strengthening - Other See attached MAR (Medication Administration Record) - Diet Type Continue Regular - Diet - Liquid Texture Continue Regular - Tube Feed Continue N/A - Weight Bearing Precaution WBAT right LE - Skin care per protocol - Diet - Solid Texture Continue Regular - Shower allowing shower FUNCTIONAL STATUS: UPDATED AT WEEKLY TEAM CONFERENCE - Bladder Same accident frequency: 7-Ind - No accidents in the past 7 days - Bowel Same accident frequency: 7-Ind - No accidents in the past 7 days - Walking Same score based on distance walked: 0(N/A) Same score based on distance walked: 1(<=50ft) - Wheelchair Same score based on distance traveled: 0(N/A) FUNCTIONAL STATUS: - Self-Care A. Eating Ind B. Grooming Ind C. Bathing Noe D. Dressing - Upper Noe E. Dressing - Lower modA F. Toileting Noe - Sphincter Control G. Bladder control Valentin H. Bowel control Valentin - Transfers Control I. Bed/Chair/Wheelchair Noe J. Toilet Noe K. Tub/Shower modA - Locomotion L. Walk/Wheelchair (B) Noe M. Stairs ADNO - Communication N. Comprehension (B) Ind O. Expression (B) Ind - Social Cognition P. Social Interaction Ind Q. Problem Solving Ind R. Memory Ind - Endurance Fair - Balance Fair - Safety Awareness Good QI SCORES: - Self-Care A. Eating 06-Independent B. Oral hygiene 03-Partial/moderate assistance C. Toileting hygiene 03-Partial/moderate assistance E. Shower/bathe self 02-Substantial/maximal assistance F. Upper body dressing 03-Partial/moderate assistance G. Lower body dressing 03-Partial/moderate assistance H. Putting on/taking off footwear 03-Partial/moderate assistance - Mobility A. Roll left and right 06-Independent B. Sit to lying 03-Partial/moderate assistance C. Lying to sitting on side of bed 03-Partial/moderate assistance D. Sit to stand 02-Substantial/maximal assistance E. Chair/[id number]-kv-[id number] transfer 03-Partial/moderate assistance F. Toilet transfer 03-Partial/moderate assistance G. Car transfer 88-Not attempted due to medical condition or safety concerns I. Walk 10 feet 88-Not attempted due to medical condition or safety concerns J. Walk 50 feet with two turns 88-Not attempted due to medical condition or safety concerns K. Walk 150 feet 88-Not attempted due to medical condition or safety concerns L. Walking 10 feet on uneven surfaces 88-Not attempted due to medical condition or safety concerns M. 1 step (curb) 88-Not attempted due to medical condition or safety concerns N. 4 steps 88-Not attempted due to medical condition or safety concerns O. 12 steps 88-Not attempted due to medical condition or safety concerns P. Picking up object 06-Independent R. Wheel 50 feet with two turns 88-Not attempted due to medical condition or safety concerns S. Wheel 150 feet 88-Not attempted due to medical condition or safety concerns - Bladder and Bowel Bladder continence 0-Always continent Bowel continence 0-Always continent - Endurance Fair - Balance Fair - Safety Awareness Fair [facility] DEFICITS: Endurance, Balance, Safety Awareness, Self-Care, and Mobility SIGNATURE PANEL: (CDT)
[2019-12-14] MEDS: DOCUSATE NA/SENNA CONC 1 TAB PO SCH (19:40)
--- NOTE | 2019-12-14 23:03 | PN ---
Date of Progress Note: 12/14/2019 Subjective: The patient was seen this morning for followup. No new complaints or problems reported. Vital signs reviewed. She did have bowel movement yesterday. Pain is under good control. Objective: Vital Signs: Reviewed. HEENT: Unremarkable. Lungs: Clear to auscultation. Cardiac: Heart sounds normal. Abdomen: Soft. Bowel sounds normal. No guarding, rigidity, tenderness, distention. Extremities: No leg edema. Impression: 1.Hypertension. 2.Asthma. 3.Acute blood loss anemia. 4.Fracture, right femur. Plan: Continue current medication. Continue stool softener, Eliquis, inhaler, and current antihyper tensive medication. Physical therapy to be provided under guidance of Dr. Romo. I will see her tomorrow. ALEXA/MODL Voice ID: [id number] Report ID: [id number]
[2019-12-15] MEDS: DULERA 100/5 (MOMETASONE/FORMOTEROL) INHALER IH SCH ×2 (07:20→19:25)
[2019-12-15] MEDS: VITAMIN D 5,000 UNIT CAP PO SCH (07:21)
[2019-12-15] MEDS: CRANBERRY FRUIT EXTRACT 200 MG CAP PO SCH ×2 (07:21→19:28)
[2019-12-15] MEDS: GABAPENTIN 300 MG CAP PO SCH ×2 (07:21→19:26)
[2019-12-15] MEDS: FE SULF/FA/VIT B COMP & C TAB PO SCH (07:21)
[2019-12-15] MEDS: APIXABAN 2.5 MG TABLET PO SCH ×2 (07:22→19:29)
[2019-12-15] MEDS: PROMOD 30 ML DOSE PO SCH ×2 (07:22→19:34)
[2019-12-15] MEDS: MAGNESIUM OXIDE 400 MG TAB PO SCH ×2 (07:22→19:29)
[2019-12-15] MEDS: ASCORBIC ACID 500 MG TABLET PO SCH (07:22)
[2019-12-15] MEDS: DULOXETINE 20 MG CAP PO SCH (07:23)
[2019-12-15] MEDS: MONTELUKAST 10 MG TAB PO SCH (07:23)
[2019-12-15] MEDS: FERROUS SULFATE 325 MG TAB PO SCH (07:23)
[2019-12-15] MEDS: AMLODIPINE 5 MG TAB PO SCH (07:24)
[2019-12-15] MEDS: CODEINE 30MG/APAP 300MG TAB PO PRN ×2 (08:10→14:20)
--- NOTE | 2019-12-15 15:08 | FAST ---
ENCOUNTER DATE AND TIME: 12/15/2019 08:00 (CDT) NAME BERTHA PARDO DATE OF : 1960 DATE OF ADMISSION: 12/02/2019 17:59 (CDT) PHONE: AGE: 58 N# [id number] GENDER: Female ENCOUNTER PHYSICIAN: Dr. Nick Romo M.D. ADMISSION DIAGNOSIS: - Orthopaedic Disorders 08 - Femur (Shaft) Fracture (08.2) RIGHT FEMUR FRACTURE. EATING: Not assessed/no information CODE: - ORAL HYGIENE: ORAL HYGIENE - STEP 1: Does the patient complete the activity by him/herself with no assistance (physical, verbal/nonverbal cueing, setup/clean-up)? Yes. 1. [id number] ADMISSION PERFORMANCE: Independent CODE: 06 TOILETING HYGIENE: Not assessed/no information CODE: - BATHING: SHOWER/BATHE SELF - STEP 1: Does the patient complete the activity by him/herself with no assistance (physical, verbal/nonverbal cueing, setup/clean-up)? No. SHOWER/BATHE SELF - STEP 2: Does the patient need only setup/clean-up assistance from one helper? No. SHOWER/BATHE SELF - STEP 3: Does the patient need only verbal/nonverbal cueing or touching/steadying/contact guard assistance fro m one helper? Yes. 1. [id number] ADMISSION PERFORMANCE: Supervision or touching assistance CODE: 04 DRESSING - UPPER BODY: DRESSING - UPPER BODY - STEP 1: Does the patient complete the activity by him/herself with no assistance (physical, verbal/nonverbal cueing, setup/clean-up)? No. DRESSING - UPPER BODY - STEP 2: Does the patient need only setup/clean-up assistance from one helper? Yes. 1. [id number] ADMISSION PERFORMANCE: Setup or clean-up assistance CODE: 05 DRESSING - LOWER BODY: DRESSING - LOWER BODY - STEP 1: Does the patient complete the activity by him/herself with no assistance (physical, verbal/nonverbal cueing, setup/clean-up)? No. DRESSING - LOWER BODY - STEP 2: Does the patient need only setup/clean-up assistance from one helper? No. DRESSING - LOWER BODY - STEP 3: Does the patient need only verbal/nonverbal cueing or touching/steadying/contact guard assistance fro m one helper? Yes. 1. [id number] ADMISSION PERFORMANCE: Supervision or touching assistance CODE: 04 PUTTING ON/TAKING OFF FOOTWEAR: FOOTWEAR - STEP 1: Does the patient complete the activity by him/herself with no assistance (physical, verbal/nonverbal cueing, setup/clean-up)? No. FOOTWEAR - STEP 2: Does the patient need only setup/clean-up assistance from one helper? No. FOOTWEAR - STEP 3: Does the patient need only verbal/nonverbal cueing or touching/steadying/contact guard assistance fro m one helper? Yes. 1. [id number] ADMISSION PERFORMANCE: Supervision or touching assistance CODE: 04 DOES THE PATIENT USE A WHEELCHAIR/SCOOTER? CODE: EXPR INDICATE THE TYPE OF WHEELCHAIR/SCOOTER USED: CODE: EXPR INDICATE THE TYPE OF WHEELCHAIR/SCOOTER USED: CODE: EXPR BLADDER AND BOWEL: CODE: EXPR CODE: EXPR SIGNATURE PANEL: The following modified sections: 1. [id number] Admission Performance, 1. [id number] Admission Performance, 1. MI2526o Admission Performance, 1. MG2371a Admission Performance, 1. [id number] Admission Performance were [electronically] signed by ORI Brown on FriDec 15 2019 15:07:23 T-0500 (Central Daylight Time)
--- NOTE | 2019-12-15 15:53 | FAST ---
SHIFT START DATE/TIME: 12/15/2019 07:00 (CDT) SHIFT END DATE/TIME: 12/15/2019 19:00 (CDT) NAME BERTHA PARDO DATE OF : 1960 DATE OF ADMISSION: 12/02/2019 17:59 (CDT) PHONE: AGE: 58 N# [id number] GENDER: Female ENCOUNTER PHYSICIAN: Dr. Nick Romo M.D. ADMISSION DIAGNOSIS: - Orthopaedic Disorders 08 - Femur (Shaft) Fracture (08.2) RIGHT FEMUR FRACTURE. EATING: EATING - STEP 1: Does the patient complete the activity by him/herself with no assistance (physical, verbal/nonverbal cueing, setup/clean-up)? No. EATING - STEP 2: Does the patient need only setup/clean-up assistance from one helper? Yes. 1. [id number] ADMISSION PERFORMANCE: Setup or clean-up assistance CODE: 05 ORAL HYGIENE: ORAL HYGIENE - STEP 1: Does the patient complete the activity by him/herself with no assistance (physical, verbal/nonverbal cueing, setup/clean-up)? No. ORAL HYGIENE - STEP 2: Does the patient need only setup/clean-up assistance from one helper? Yes. 1. [id number] ADMISSION PERFORMANCE: Setup or clean-up assistance CODE: 05 TOILETING HYGIENE: TOILETING HYGIENE - STEP 1: Does the patient complete the activity by him/herself with no assistance (physical, verbal/nonverbal cueing, setup/clean-up)? No. TOILETING HYGIENE - STEP 2: Does the patient need only setup/clean-up assistance from one helper? Yes. 1. [id number] ADMISSION PERFORMANCE: Setup or clean-up assistance CODE: 05 BATHING: Not assessed/no information CODE: - DRESSING - UPPER BODY: DRESSING - UPPER BODY - STEP 1: Does the patient complete the activity by him/herself with no assistance (physical, verbal/nonverbal cueing, setup/clean-up)? No. DRESSING - UPPER BODY - STEP 2: Does the patient need only setup/clean-up assistance from one helper? Yes. 1. [id number] ADMISSION PERFORMANCE: Setup or clean-up assistance CODE: 05 DRESSING - LOWER BODY: DRESSING - LOWER BODY - STEP 1: Does the patient complete the activity by him/herself with no assistance (physical, verbal/nonverbal cueing, setup/clean-up)? No. DRESSING - LOWER BODY - STEP 2: Does the patient need only setup/clean-up assistance from one helper? No. DRESSING - LOWER BODY - STEP 3: Does the patient need only verbal/nonverbal cueing or touching/steadying/contact guard assistance fro m one helper? Yes. 1. [id number] ADMISSION PERFORMANCE: Supervision or touching assistance CODE: 04 PUTTING ON/TAKING OFF FOOTWEAR: FOOTWEAR - STEP 1: Does the patient complete the activity by him/herself with no assistance (physical, verbal/nonverbal cueing, setup/clean-up)? No. FOOTWEAR - STEP 2: Does the patient need only setup/clean-up assistance from one helper? No. FOOTWEAR - STEP 3: Does the patient need only verbal/nonverbal cueing or touching/steadying/contact guard assistance fro m one helper? Yes. 1. [id number] ADMISSION PERFORMANCE: Supervision or touching assistance CODE: 04 ROLL LEFT AND RIGHT: ROLL LEFT AND RIGHT - STEP 1: Does the patient complete the activity by him/herself with no assistance (physical, verbal/nonverbal cueing, setup/clean-up)? No. ROLL LEFT AND RIGHT - STEP 2: Does the patient need only setup/clean-up assistance from one helper? Yes. 1. [id number] ADMISSION PERFORMANCE: Setup or clean-up assistance CODE: 05 SIT TO LYING: SIT TO LYING - STEP 1: Does the patient complete the activity by him/herself with no assistance (physical, verbal/nonverbal cueing, setup/clean-up)? No. SIT TO LYING - STEP 2: Does the patient need only setup/clean-up assistance from one helper? Yes. 1. [id number] ADMISSION PERFORMANCE: Setup or clean-up assistance CODE: 05 LYING TO SITTING: LYING TO SITTING ON SIDE OF BED - STEP 1: Does the patient complete the activity by him/herself with no assistance (physical, verbal/nonverbal cueing, setup/clean-up)? No. LYING TO SITTING ON SIDE OF BED - STEP 2: Does the patient need only setup/clean-up assistance from one helper? Yes. 1. [id number] ADMISSION PERFORMANCE: Setup or clean-up assistance CODE: 05 SIT TO STAND: SIT TO STAND - STEP 1: Does the patient complete the activity by him/herself with no assistance (physical, verbal/nonverbal cueing, setup/clean-up)? No. SIT TO STAND - STEP 2: Does the patient need only setup/clean-up assistance from one helper? Yes. 1. [id number] ADMISSION PERFORMANCE: Setup or clean-up assistance CODE: 05 TRANSFERS: BED, CHAIR: CHAIR/[id number] TRANSFER - STEP 1: Does the patient complete the activity by him/herself with no assistance (physical, verbal/nonverbal cueing, setup/clean-up)? No. CHAIR/[id number] TRANSFER - STEP 2: Does the patient need only setup/clean-up assistance from one helper? Yes. 1. [id number] ADMISSION PERFORMANCE: Setup or clean-up assistance CODE: 05 TRANSFER TOILET: TOILET TRANSFER - STEP 1: Does the patient complete the activity by him/herself with no assistance (physical, verbal/nonverbal cueing, setup/clean-up)? No. TOILET TRANSFER - STEP 2: Does the patient need only setup/clean-up assistance from one helper? Yes. 1. [id number] ADMISSION PERFORMANCE: Setup or clean-up assistance CODE: 05 TRANSFERS: CAR: Not assessed/no information CODE: - WALK 10 FEET: Not assessed/no information CODE: - 1 STEP (CURB): Not assessed/no information CODE: - PICKING UP OBJECT: Not assessed/no information CODE: - DOES THE PATIENT USE A WHEELCHAIR/SCOOTER? Q1. DOES THE PATIENT USE A WHEELCHAIR/SCOOTER?: Yes CODE: 1 WHEEL 50 FEET WITH TWO TURNS: WHEEL 50 FEET WITH TWO TURNS - STEP 1: Does the patient complete the activity by him/herself with no assistance (physical, verbal/nonverbal cueing, setup/clean-up)? No. WHEEL 50 FEET WITH TWO TURNS - STEP 2: Does the patient need only setup/clean-up assistance from one helper? Yes. 1. [id number] ADMISSION PERFORMANCE: Setup or clean-up assistance CODE: 05 INDICATE THE TYPE OF WHEELCHAIR/SCOOTER USED: RR1. INDICATE THE TYPE OF WHEELCHAIR/SCOOTER USED.: Manual CODE: 1 WHEEL 150 FEET: WHEEL 150 FEET - STEP 1: Does the patient complete the activity by him/herself with no assistance (physical, verbal/nonverbal cueing, setup/clean-up)? No. WHEEL 150 FEET - STEP 2: Does the patient need only setup/clean-up assistance from one helper? Yes. 1. [id number] ADMISSION PERFORMANCE: Setup or clean-up assistance CODE: 05 INDICATE THE TYPE OF WHEELCHAIR/SCOOTER USED: SS1. INDICATE THE TYPE OF WHEELCHAIR/SCOOTER USED.: Manual CODE: 1 BLADDER AND BOWEL: H350. BLADDER CONTINENCE (3-DAY ASSESSMENT PERIOD): Always continent (no documented incontinence) CODE: 0 H400. BOWEL CONTINENCE (3-DAY ASSESSMENT PERIOD): Always continent CODE: 0 SIGNATURE PANEL: The following modified sections: 1. [id number] Admission Performance, 1. [id number] Admission Performance, 1. VB1431B Admission Performance, 1. ZG7890g Admission Performance, 1. [id number] Admission Performance, 1. EW8669t Admission Performance, 1. [id number] Admission Performance, 1. [id number] Admission Performance , 1. [id number] Admission Performance, 1. NA3239H Admission Performance, 1. NL6316P Admission Performanc e, 1. [id number] Admission Performance, 1. [id number] Admission Performance, 1. [id number] Admission Performan ce, 1. [id number] Admission Performance, Q1. Does the patient use a wheelchair/scooter?, 1. [id number] Admi ssion Performance, RR1. Indicate the type of wheelchair/scooter used., 1. [id number] Admission Performan ce, Code, SS1. Indicate the type of wheelchair/scooter used., H350. Bladder Continence (3-day assessm ent period), H400. Bowel Continence (3-day assessment period) were [electronically] signed by Nataly Caldwell C.N.A. on FriDec 15 2019 15:53:12 GMT-0500 (Central Daylight Time)
[2019-12-15] MEDS: DOCUSATE NA/SENNA CONC 1 TAB PO SCH (19:28)
--- NOTE | 2019-12-15 20:05 | R.PN ---
ENCOUNTER DATE AND TIME: 12/15/2019 20:02 (CDT) NAME BERTHA PARDO DATE OF : 1960 DATE OF ADMISSION: 12/02/2019 17:59 (CDT) RIGHT FEMUR FRACTURECHIEF COMPLAINT: Right hip fracture SUBJECTIVE: Pt denied any depression. Pt denied any Shortness of Breath. She is COVID-19 negative. Her right hip pain is controlled. She ambulated 220 feet with a rolling wal ker and contact guard assistance. WBC 7.7, Hgb 8.8, prealbumin 11.2. Calcium is low at 8.2. She is medically managed by . UA and culture showed mixed raegan. She will followup with ortho Dr. Verdugo after discharge. Her pain is managed. She is taking a stool softener. Mobilized wheelchair 250' with standby assistance. Ambulated 90' with standby assistance using a roll ing walker. VITAL SIGNS Temperature: 98.6 F SBP/DBP: 99/52 Pulse: 74 Resp: 16 MEDICATION ALLERGIES: No Known Drug Allergies (NKDA) ENVIRONMENTAL ALLERGIES: - Substance Allergies None Known - Other Allergies None Known NURSING: - Shower allowing shower - Skin care per protocol PRECAUTIONS: - Weight Bearing Precaution WBAT right LE ACTIVITIES OOB only with supervision THERAPIES: - Dietary and Nutrition Adequate Nutrition. Nutritional Education. Nutritional Supplements. PHYSICAL EXAM - Gen Alert and awake Lying in bed No apparent distress Oriented to: person, time, and place - Skin No skin breakdown. Normacephalic - Eyes No abnormalities - ENMT No abnormalities - Neck No abnormalities - CVS RRR - Chest No abnormalities - Resp Clear to auscultation - Abd Soft - GI Non distended Deferred - No abnormalities - Ext Right hip surgical site has good hemostasis. - MSK 4+/5 weakness in right lower extremity - Neuro 4/5 strength right lower extremity. - Psych No abnormalities ASSESSMENT: Pt. is a 58 yo Right-handed white female.On 11/27/2019 she was admitted to [facility] with diagno sis RIGHT FEMUR FRACTURE.Her impairment category is Orthopaedic Disorders 08 - Femur (Shaft) Fractur e (08.2).Pre-morbidly, Pt. was independent/mod-I in Communication, Self-Care, Transfers Control, Safe ty Awareness, Balance, and Social Cognition; and she had good Locomotion and Sphincter Control.Curren tly, she has deficits of Endurance, Locomotion, Balance, and Safety Awareness.Pt. is now referred to [facility] for acute in-patient rehabilitation in order to maximize patient's functional independence in activities of daily living, strength, ROM, and mobility.- Rehab Goal Patient has realistic goal of being discharged at assistance level 6-Valentin to reside at Home with Fam aurora/Relatives. MDM/PLAN: - Physical Therapy Decreased range of motion - to improve, our physical therapists will perform initial evaluation of p t's status upon admission and devise an individualized program for increasing patient's Range of Sj on. Gait dysfunction - to improve, our physical therapists will perform initial evaluation of pt's statu s upon admission and devise an individualized program for Gait Training, and Wheel Chair mobility Need for home safety evaluation - to improve, our physical therapists will perform initial evaluatio n of pt's status upon admission and devise an individualized program for Home Evaluation Need in caregiver upon discharge - to improve, our physical therapists will perform initial evaluati on of pt's status upon admission and devise an individualized program for Caregiver Training New precaution - to improve, our physical therapists will perform initial evaluation of pt's status upon admission and devise an individualized program for Patient precaution education Poor balance - to improve, our physical therapists will perform initial evaluation of pt's status up on admission and devise an individualized program for Balance Training Poor endurance - to improve, our physical therapists will perform initial evaluation of pt's status upon admission and devise an individualized program for Endurance Training Weakness - to improve, our physical therapists will perform initial evaluation of pt's status upon a dmission and devise an individualized program for Aquatic Therapy, Neuromuscular Reeducation, and Str engthening Achieving independence - to improve, our physical therapists will perform initial evaluation of pt's status upon admission and devise an individualized program for Community Reintegration Activities - Occupational Therapy Need for foster care therapist - to improve, our occupation therapists will perform initial evaluation of pt's status upon admission and devise an individualized program for Caregiver Training Weakness - to improve, our occupation therapists will perform initial evaluation of pt's status upon admission and devise an individualized program for Aquatic Therapy, Balance, Endurance, UE ROM, and UE strengthening - Other See attached MAR (Medication Administration Record) - Diet Type Continue Regular - Diet - Liquid Texture Continue Regular - Tube Feed Continue N/A - Weight Bearing Precaution WBAT right LE - Skin care per protocol - Diet - Solid Texture Continue Regular - Shower allowing shower FUNCTIONAL STATUS: UPDATED AT WEEKLY TEAM CONFERENCE - Bladder Same accident frequency: 7-Ind - No accidents in the past 7 days - Bowel Same accident frequency: 7-Ind - No accidents in the past 7 days - Walking Same score based on distance walked: 0(N/A) Same score based on distance walked: 1(<=50ft) - Wheelchair Same score based on distance traveled: 0(N/A) FUNCTIONAL STATUS: - Self-Care A. Eating Ind B. Grooming Ind C. Bathing Noe D. Dressing - Upper Noe E. Dressing - Lower modA F. Toileting Noe - Sphincter Control G. Bladder control Valentin H. Bowel control Valentin - Transfers Control I. Bed/Chair/Wheelchair Noe J. Toilet Noe K. Tub/Shower modA - Locomotion L. Walk/Wheelchair (B) Noe M. Stairs ADNO - Communication N. Comprehension (B) Ind O. Expression (B) Ind - Social Cognition P. Social Interaction Ind Q. Problem Solving Ind R. Memory Ind - Endurance Fair - Balance Fair - Safety Awareness Good QI SCORES: - Self-Care A. Eating 06-Independent B. Oral hygiene 03-Partial/moderate assistance C. Toileting hygiene 03-Partial/moderate assistance E. Shower/bathe self 02-Substantial/maximal assistance F. Upper body dressing 03-Partial/moderate assistance G. Lower body dressing 03-Partial/moderate assistance H. Putting on/taking off footwear 03-Partial/moderate assistance - Mobility A. Roll left and right 06-Independent B. Sit to lying 03-Partial/moderate assistance C. Lying to sitting on side of bed 03-Partial/moderate assistance D. Sit to stand 02-Substantial/maximal assistance E. Chair/ptk-av-[id number] transfer 03-Partial/moderate assistance F. Toilet transfer 03-Partial/moderate assistance G. Car transfer 88-Not attempted due to medical condition or safety concerns I. Walk 10 feet 88-Not attempted due to medical condition or safety concerns J. Walk 50 feet with two turns 88-Not attempted due to medical condition or safety concerns K. Walk 150 feet 88-Not attempted due to medical condition or safety concerns L. Walking 10 feet on uneven surfaces 88-Not attempted due to medical condition or safety concerns M. 1 step (curb) 88-Not attempted due to medical condition or safety concerns N. 4 steps 88-Not attempted due to medical condition or safety concerns O. 12 steps 88-Not attempted due to medical condition or safety concerns P. Picking up object 06-Independent R. Wheel 50 feet with two turns 88-Not attempted due to medical condition or safety concerns S. Wheel 150 feet 88-Not attempted due to medical condition or safety concerns - Bladder and Bowel Bladder continence 0-Always continent Bowel continence 0-Always continent - Endurance Fair - Balance Fair - Safety Awareness Fair CURRENT [facility]. DEFICITS: Endurance, Balance, Safety Awareness, Self-Care, and Mobility SIGNATURE PANEL: (CDT)
--- NOTE | 2019-12-16 00:40 | PN ---
Date of Progress Note: 12/15/2019 Subjective: The patient was seen this morning for followup. No new complaints or problems reported by her. Objective: Vital Signs: Reviewed. HEENT: Unremarkable. Lungs: Clear to auscultation. Heart: Sounds normal. Abdomen: Soft. Bowel sounds normal. No guarding, rigidity, tenderness, distention. Extremities: No leg edema. Impression: 1.Right leg fracture. 2.Hypertension. 3.Asthma. 4.Anemia due to acute blood loss. 5.Constipation. Plan: Continue current medications. Continue stool softener, anticoagulation therapy, inhaler. Con tinue physical therapy under guidance of Dr. Romo. I will see her tomorrow. ALEXA/MODL Voice ID: [id number] Report ID: [id number]
[2019-12-16 06:23] LABS: Hematocrit 29.9 % (36.0-45.0); Lymphocytes % 36.4 % (15.3-44.8); RBC Red Blood Cell Count 3.42 M/uL (3.86-4.86)
[2019-12-16 06:43] LABS: Albumin 2.9 g/dL (3.4-5.0); BUN Blood Urea Nitrogen 22 mg/dL (7-18); Bicarbonate 30 mmol/L (21-32); Glucose Level 93 mg/dL (74-106); Potassium 4.1 mmol/L (3.5-5.1); Sodium Level 145 mmol/L (136-145)
[2019-12-16] MEDS: PROMOD 30 ML DOSE PO SCH ×2 (08:00→20:16)
[2019-12-16] MEDS: AMLODIPINE 5 MG TAB PO SCH (08:00)
[2019-12-16] MEDS: LIDOCAINE 4% PATCH TOP SCH (08:26)
[2019-12-16] MEDS: CRANBERRY FRUIT EXTRACT 200 MG CAP PO SCH ×2 (08:27→20:06)
[2019-12-16] MEDS: CODEINE 30MG/APAP 300MG TAB PO PRN ×3 (08:27→20:04)
[2019-12-16] MEDS: DULERA 100/5 (MOMETASONE/FORMOTEROL) INHALER IH SCH ×2 (08:27→20:09)
[2019-12-16] MEDS: ASCORBIC ACID 500 MG TABLET PO SCH (08:27)
[2019-12-16] MEDS: FE SULF/FA/VIT B COMP & C TAB PO SCH (08:28)
[2019-12-16] MEDS: APIXABAN 2.5 MG TABLET PO SCH ×2 (08:28→20:06)
[2019-12-16] MEDS: FERROUS SULFATE 325 MG TAB PO SCH (08:29)
[2019-12-16] MEDS: VITAMIN D 5,000 UNIT CAP PO SCH (08:29)
[2019-12-16] MEDS: MONTELUKAST 10 MG TAB PO SCH (08:29)
[2019-12-16] MEDS: DULOXETINE 20 MG CAP PO SCH (08:29)
[2019-12-16] MEDS: MAGNESIUM OXIDE 400 MG TAB PO SCH ×2 (08:29→20:06)
[2019-12-16] MEDS: GABAPENTIN 300 MG CAP PO SCH ×2 (08:32→20:05)
[2019-12-16] MEDS ORDERED: ALBUTEROL 2.5 MG/3 ML NEB SOL NEB PRN (16:00)
[2019-12-16] MEDS: DOCUSATE NA/SENNA CONC 1 TAB PO SCH (20:06)
--- NOTE | 2019-12-16 23:32 | PN ---
Date of Progress Note: 12/16/2019 Subjective: The patient was seen this morning for followup. No new complaints or problems reported by her. Lying in bed, not in distress. Objective: Vital Signs: Reviewed. HEENT: Unremarkable. Lungs: Clear to auscultation. Cardiac: Heart sounds normal. Abdomen: Soft. Bowel sounds normal. No guarding, rigidity, tenderness, or distention. Extremities: No leg edema. Laboratory Data: White count 5.5, hemoglobin 10.3, platelets 412. Sodium 145, potassium 4.1, chloride 109, bicarb 30, BUN 22, creatinine 0.5, and glucose 93. Impression: 1. Hypertension. 2. Asthma. 3. Anemia due to acute blood loss. 4. Right femur fracture. Plan: We will continue current medication. Anemia count is better. Hemoglobin is better compared to before. Continue iron supplement. Continue DVT prophylaxis using Eliquis. Continue current antihypertensive medication and inhaler and physical therapy to be provided under guidance of Dr. Romo. I will see her tomorrow for followup. ALEXA/MODL Voice ID: [id number] Report ID: [id number] MTDD
[2019-12-17] MEDS: CRANBERRY FRUIT EXTRACT 200 MG CAP PO SCH ×2 (07:09→19:53)
[2019-12-17] MEDS: MONTELUKAST 10 MG TAB PO SCH (07:09)
[2019-12-17] MEDS: DULOXETINE 20 MG CAP PO SCH (07:09)
[2019-12-17] MEDS: DULERA 100/5 (MOMETASONE/FORMOTEROL) INHALER IH SCH ×2 (07:09→19:53)
[2019-12-17] MEDS: APIXABAN 2.5 MG TABLET PO SCH ×2 (07:10→19:52)
[2019-12-17] MEDS: GABAPENTIN 300 MG CAP PO SCH ×2 (07:10→19:53)
[2019-12-17] MEDS: AMLODIPINE 5 MG TAB PO SCH (07:10)
[2019-12-17] MEDS: ASCORBIC ACID 500 MG TABLET PO SCH (07:10)
[2019-12-17] MEDS: MAGNESIUM OXIDE 400 MG TAB PO SCH ×2 (07:10→19:53)
[2019-12-17] MEDS: FE SULF/FA/VIT B COMP & C TAB PO SCH (07:10)
[2019-12-17] MEDS: FERROUS SULFATE 325 MG TAB PO SCH (07:10)
[2019-12-17] MEDS: PROMOD 30 ML DOSE PO SCH ×2 (07:11→19:52)
[2019-12-17] MEDS: VITAMIN D 5,000 UNIT CAP PO SCH (07:11)
[2019-12-17] MEDS: LIDOCAINE 4% PATCH TOP SCH (07:33)
[2019-12-17] MEDS: CODEINE 30MG/APAP 300MG TAB PO PRN ×2 (08:03→19:56)
--- NOTE | 2019-12-17 11:54 | PN ---
Date of Progress Note: 12/17/2019 Subjective: The patient was seen this morning for followup. No new complaints or problems reported by the patient. She was doing her physical therapy in the therapy room this morning. Denied any new complaints. Objective: Vital Signs: Reviewed. HEENT: Unremarkable. Lungs: Clear to auscultation. Cardiac: Heart sounds normal. Abdomen: Soft. Bowel sounds normal. No guarding, rigidity, tenderness, distention. Extremities: No leg edema. Skin: She does have some rash with itching on the right lower extremity. Impression: 1. Dermatitis. 2. Right femur fracture. 3. Asthma. 4. Hypertension. 5. Anemia due to acute blood loss. Plan: We will go ahead and start her on some topical steroid cream for her dermatitis type of problem to the right leg. Continue current antihypertensive medication. DVT prophylaxis with Eliquis will be continued. I will see her tomorrow for followup. ALEXA/NADER Voice ID: [id number] Report ID: [id number] ERNST
--- NOTE | 2019-12-17 13:35 | P.RH.PN ---
Estimated Length of Stay: 20 Expected Discharge Date: 12/21/19 Discharge Disposition Plan: Home Family Support: Yes [facility] Goal: Mobility, Transfers, Self Care Vital Signs: Last Vital Signs Temp 98.8 F 12/17/19 07:09 Pulse 65 12/17/19 07:10 Resp 16 12/17/19 09:03 BP 160/75 H 12/17/19 07:10 Pulse Ox 95 12/17/19 09:03 Laboratory: Laboratory Last Values WBC 5.5 K/uL (4.3-10.9) D 12/16/19 06:02 RBC 3.42 M/uL (3.86-4.86) L 12/16/19 06:02 Hgb 10.3 g/dL (12.0-15.0) L 12/16/19 06:02 Hct 29.9 % (36.0-45.0) L 12/16/19 06:02 MCV 87.4 fL (80-100) 12/16/19 06:02 MCH 30.1 pg (27.0-35.0) 12/16/19 06:02 MCHC 34.4 g/dL (32.0-36.0) 12/16/19 06:02 RDW 13.3 % (12.1-15.2) 12/16/19 06:02 Plt Count 412 K/uL (152-406) H 12/16/19 06:02 MPV 7.0 fL (7.6-11.3) L 12/16/19 06:02 Neutrophils % 43.7 % (41.7-73.7) 12/16/19 06:02 Lymphocytes % 36.4 % (15.3-44.8) 12/16/19 06:02 Monocytes % 10.3 % (3.3-12.3) 12/16/19 06:02 Eosinophils % 8.6 % (0-4.4) H 12/16/19 06:02 Basophils % 1.0 % (0-1.3) 12/16/19 06:02 Absolute Neutrophils 2.4 K/uL (1.8-8.0) 12/16/19 06:02 Absolute Lymphocytes 2.0 K/uL (0.7-4.9) 12/16/19 06:02 Absolute Monocytes 0.6 K/uL (0.1-1.3) 12/16/19 06:02 Absolute Eosinophils 0.5 K/uL (0-0.5) 12/16/19 06:02 Absolute Basophils 0.1 K/uL (0-0.5) 12/16/19 06:02 Sodium 145 mmol/L (136-145) 12/16/19 06:02 Potassium 4.1 mmol/L (3.5-5.1) 12/16/19 06:02 Chloride 109 mmol/L (98-107) H 12/16/19 06:02 Carbon Dioxide 30 mmol/L (21-32) 12/16/19 06:02 BUN 22 mg/dL (7-18) H 12/16/19 06:02 Creatinine 0.51 mg/dL (0.55-1.3) L 12/16/19 06:02 Estimated GFR > 90 mL/min (=/>90) 12/16/19 06:02 Glucose 93 mg/dL (74-106) 12/16/19 06:02 Calcium 8.6 mg/dL (8.5-10.1) 12/16/19 06:02 Magnesium 2.3 mg/dL (1.8-2.4) D 12/09/19 07:00 Total Bilirubin 0.4 mg/dL (0.2-1.0) 12/11/19 06:59 Direct Bilirubin 0.1 mg/dL (0-0.2) 12/11/19 06:59 AST 16 U/L (15-37) 12/11/19 06:59 ALT 22 U/L (12-78) 12/11/19 06:59 Alkaline Phosphatase 107 U/L (45-117) 12/11/19 06:59 Serum Total Protein 6.3 g/dL (6.4-8.2) L 12/11/19 06:59 Albumin 2.9 g/dL (3.4-5.0) L 12/16/19 06:02 Globulin 3.7 g/dL (2.3-3.5) H 12/11/19 06:59 Albumin/Globulin Ratio 0.7 (1.1-1.8) L 12/11/19 06:59 Prealbumin 18.0 mg/dL (20-40) L 12/16/19 06:02 TSH 0.922 uIU/mL (0.360-3.740) 12/04/19 17:54 Urine Color Dk yellow 12/05/19 05:20 Urine Appearance Clear 12/05/19 05:20 Urine pH 5.5 (5.0-7.0) 12/05/19 05:20 Ur Specific Ranier 1.020 (1.005-1.030) 12/05/19 05:20 Glucose (UA)(Auto) Negative (NEG) 12/05/19 05:20 Urine Ketones Negative (NEG) 12/05/19 05:20 Urine Blood 1+ (NEG) H 12/05/19 05:20 Urine Nitrite Negative (NEG) 12/05/19 05:20 Urine Bilirubin Negative (NEG) 12/05/19 05:20 Urine Urobilinogen 1.0 mg/dL (0.2-1.0) 12/05/19 05:20 Ur Leukocyte Esterase 2+ (NEG) H 12/05/19 05:20 Urine RBC 10-20 /HPF (NONE SEEN) H 12/05/19 05:20 Urine WBC 20-50 /HPF (<5) H 12/05/19 05:20 Ur Squamous Epith Cells 5-10 /HPF (NONE SEEN) H 12/05/19 05:20 Urine Bacteria 20-50 /HPF (<20) H 12/05/19 05:20 Hyaline Casts Few /LPF (NONE SEEN) 12/03/19 03:15 Fine Granular Casts Few /LPF (NONE SEEN) 12/03/19 03:15 Urine Mucus 2+ /HPF (NONE SEEN) 12/03/19 03:15 Urine Culture Reflexed Not needed 12/05/19 05:20 Urine Total Protein Negative (NEG) 12/05/19 05:20 Weight: 209 lb 11.2 oz Wound Present: No Closed Surgical Incision Present: Yes Negative Pressure Wound Therapy Present: No Physician Update: Labs reviewed and are stable. She is doing well with all therapy. Her pain is managed. She may have mild difficulty getting into her shower at home due to a moderate threshold and her nonweight bearing status on the right leg. She is transferring with modified independence. She is walking near household distances with modified independence. Functional Improvement: Patient progressing well w/ technique and safety awareness. Patient fatigues quickly when performing gait tx. Summary: Patient's care plan and watermaster goals have been reviewed and revised as necessary. Please see the Rehabilitation Signature page for all necessary signatures.
[2019-12-17] MEDS: DOCUSATE NA/SENNA CONC 1 TAB PO SCH (19:53)
[2019-12-18 05:52] VITALS: BMI 48.1
[2019-12-18] MEDS: DULERA 100/5 (MOMETASONE/FORMOTEROL) INHALER IH SCH ×2 (07:24→19:26)
[2019-12-18] MEDS: LIDOCAINE 4% PATCH TOP SCH (07:24)
[2019-12-18] MEDS: DULOXETINE 20 MG CAP PO SCH (07:50)
[2019-12-18] MEDS: ASCORBIC ACID 500 MG TABLET PO SCH (07:50)
[2019-12-18] MEDS: CRANBERRY FRUIT EXTRACT 200 MG CAP PO SCH ×2 (07:50→19:26)
[2019-12-18] MEDS: MAGNESIUM OXIDE 400 MG TAB PO SCH ×2 (07:51→19:27)
[2019-12-18] MEDS: PROMOD 30 ML DOSE PO SCH ×2 (07:51→19:25)
[2019-12-18] MEDS: GABAPENTIN 300 MG CAP PO SCH ×2 (07:51→19:27)
[2019-12-18] MEDS: AMLODIPINE 5 MG TAB PO SCH (07:51)
[2019-12-18] MEDS: VITAMIN D 5,000 UNIT CAP PO SCH (07:51)
[2019-12-18] MEDS: FERROUS SULFATE 325 MG TAB PO SCH (07:51)
[2019-12-18] MEDS: MONTELUKAST 10 MG TAB PO SCH (07:52)
[2019-12-18] MEDS: FE SULF/FA/VIT B COMP & C TAB PO SCH (07:52)
[2019-12-18] MEDS: APIXABAN 2.5 MG TABLET PO SCH ×2 (07:52→19:27)
[2019-12-18] MEDS: CODEINE 30MG/APAP 300MG TAB PO PRN ×2 (08:23→19:26)
--- NOTE | 2019-12-18 10:49 | PN ---
Date of Progress Note: 12/18/2019 Subjective: The patient was seen this morning for followup. She was lying in bed, not in distress. Denies any new complaints. Objective: Vital Signs: Reviewed. HEENT: Unremarkable. Lungs: Clear to auscultation. Cardiac: Heart sounds normal. Abdomen: Soft. Bowel sounds normal. No guarding, rigidity, tenderness, distention. Extremities: No leg edema. Impression: 1.Hypertension. 2.Asthma. 3.Anemia due to acute blood loss. 4.Constipation. 5.Right femur fracture. Plan: Continue current medication. Continue current inhaler. Antihypertensive medication per order . Eliquis for DVT prophylaxis and iron supplement. The patient still requires some pain medication at least 1 or 2 times a day. We did talk about upon discharge she should first rely on Tylenol 500 m g 4 times a day as needed, and if that is not strong enough to control pain, then she may use Tylenol with Codeine, which will be prescribed to her at the time of discharge. Her discharge is scheduled for Friday of this coming week. ALEXA/NADER Voice ID: [id number] Report ID: [id number]
[2019-12-18] MEDS: DOCUSATE NA/SENNA CONC 1 TAB PO SCH (19:26)
--- NOTE | 2019-12-18 21:09 | R.PN ---
ENCOUNTER DATE AND TIME: 12/18/2019 21:05 (CDT) NAME BERTHA PARDO DATE OF : 1960 DATE OF ADMISSION: 12/02/2019 17:59 (CDT) RIGHT FEMUR FRACTURECHIEF COMPLAINT: Right hip fracture SUBJECTIVE: Pt denied any depression. Pt denied any Shortness of Breath. She is COVID-19 negative. Her right hip pain is controlled. She ambulated 220 feet with a rolling wal ker and contact guard assistance. WBC 7.7, Hgb 8.8, prealbumin 11.2. Calcium is low at 8.2. She is medically managed by . UA and culture showed mixed raegan. She will followup with ortho Dr. Verdugo after discharge. Her pain is managed. She is taking a stool softener. Mobilized wheelchair 250' with independence. Ambulated 160' with independence using a rolling walker. VITAL SIGNS Temperature: 98.6 F SBP/DBP: 137/79 Pulse: 73 Resp: 16 MEDICATION ALLERGIES: No Known Drug Allergies (NKDA) ENVIRONMENTAL ALLERGIES: - Substance Allergies None Known - Other Allergies None Known NURSING: - Shower allowing shower - Skin care per protocol PRECAUTIONS: - Weight Bearing Precaution WBAT right LE ACTIVITIES OOB only with supervision THERAPIES: - Dietary and Nutrition Adequate Nutrition. Nutritional Education. Nutritional Supplements. PHYSICAL EXAM - Gen Alert and awake Lying in bed No apparent distress Oriented to: person, time, and place - Skin No skin breakdown. Normacephalic - Eyes No abnormalities - ENMT No abnormalities - Neck No abnormalities - CVS RRR - Chest No abnormalities - Resp Clear to auscultation - Abd Soft - GI Non distended Deferred - No abnormalities - Ext Right hip surgical site has good hemostasis. - MSK 4+/5 weakness in right lower extremity - Neuro 4/5 strength right lower extremity. - Psych No abnormalities ASSESSMENT: Pt. is a 58 yo Right-handed white female.On 11/27/2019 she was admitted to [facility] with diagno sis RIGHT FEMUR FRACTURE.Her impairment category is Orthopaedic Disorders 08 - Femur (Shaft) Fractur e (08.2).Pre-morbidly, Pt. was independent/mod-I in Communication, Self-Care, Transfers Control, Safe ty Awareness, Balance, and Social Cognition; and she had good Locomotion and Sphincter Control.Curren tly, she has deficits of Endurance, Locomotion, Balance, and Safety Awareness.Pt. is now referred to [facility] for acute in-patient rehabilitation in order to maximize patient's functional independence in activities of daily living, strength, ROM, and mobility.- Rehab Goal Patient has realistic goal of being discharged at assistance level 6-Valentin to reside at Home with Fam aurora/Relatives. MDM/PLAN: - Physical Therapy Decreased range of motion - to improve, our physical therapists will perform initial evaluation of p t's status upon admission and devise an individualized program for increasing patient's Range of Sj on. Gait dysfunction - to improve, our physical therapists will perform initial evaluation of pt's statu s upon admission and devise an individualized program for Gait Training, and Wheel Chair mobility Need for home safety evaluation - to improve, our physical therapists will perform initial evaluatio n of pt's status upon admission and devise an individualized program for Home Evaluation Need in caregiver upon discharge - to improve, our physical therapists will perform initial evaluati on of pt's status upon admission and devise an individualized program for Caregiver Training New precaution - to improve, our physical therapists will perform initial evaluation of pt's status upon admission and devise an individualized program for Patient precaution education Poor balance - to improve, our physical therapists will perform initial evaluation of pt's status up on admission and devise an individualized program for Balance Training Poor endurance - to improve, our physical therapists will perform initial evaluation of pt's status upon admission and devise an individualized program for Endurance Training Weakness - to improve, our physical therapists will perform initial evaluation of pt's status upon a dmission and devise an individualized program for Aquatic Therapy, Neuromuscular Reeducation, and Str engthening Achieving independence - to improve, our physical therapists will perform initial evaluation of pt's status upon admission and devise an individualized program for Community Reintegration Activities - Occupational Therapy Need for patient care secretary - to improve, our occupation therapists will perform initial evaluation of pt's status upon admission and devise an individualized program for Caregiver Training Weakness - to improve, our occupation therapists will perform initial evaluation of pt's status upon admission and devise an individualized program for Aquatic Therapy, Balance, Endurance, UE ROM, and UE strengthening - Other See attached MAR (Medication Administration Record) - Diet Type Continue Regular - Diet - Liquid Texture Continue Regular - Tube Feed Continue N/A - Weight Bearing Precaution WBAT right LE - Skin care per protocol - Diet - Solid Texture Continue Regular - Shower allowing shower FUNCTIONAL STATUS: UPDATED AT WEEKLY TEAM CONFERENCE - Bladder Same accident frequency: 7-Ind - No accidents in the past 7 days - Bowel Same accident frequency: 7-Ind - No accidents in the past 7 days - Walking Same score based on distance walked: 0(N/A) Same score based on distance walked: 1(<=50ft) - Wheelchair Same score based on distance traveled: 0(N/A) FUNCTIONAL STATUS: - Self-Care A. Eating Ind B. Grooming Ind C. Bathing Noe D. Dressing - Upper Noe E. Dressing - Lower modA F. Toileting Noe - Sphincter Control G. Bladder control Valentin H. Bowel control Valentin - Transfers Control I. Bed/Chair/Wheelchair Noe J. Toilet Noe K. Tub/Shower modA - Locomotion L. Walk/Wheelchair (B) Noe M. Stairs ADNO - Communication N. Comprehension (B) Ind O. Expression (B) Ind - Social Cognition P. Social Interaction Ind Q. Problem Solving Ind R. Memory Ind - Endurance Fair - Balance Fair - Safety Awareness Good QI SCORES: - Self-Care A. Eating 06-Independent B. Oral hygiene 03-Partial/moderate assistance C. Toileting hygiene 03-Partial/moderate assistance E. Shower/bathe self 02-Substantial/maximal assistance F. Upper body dressing 03-Partial/moderate assistance G. Lower body dressing 03-Partial/moderate assistance H. Putting on/taking off footwear 03-Partial/moderate assistance - Mobility A. Roll left and right 06-Independent B. Sit to lying 03-Partial/moderate assistance C. Lying to sitting on side of bed 03-Partial/moderate assistance D. Sit to stand 02-Substantial/maximal assistance E. Chair/[id number] transfer 03-Partial/moderate assistance F. Toilet transfer 03-Partial/moderate assistance G. Car transfer 88-Not attempted due to medical condition or safety concerns I. Walk 10 feet 88-Not attempted due to medical condition or safety concerns J. Walk 50 feet with two turns 88-Not attempted due to medical condition or safety concerns K. Walk 150 feet 88-Not attempted due to medical condition or safety concerns L. Walking 10 feet on uneven surfaces 88-Not attempted due to medical condition or safety concerns M. 1 step (curb) 88-Not attempted due to medical condition or safety concerns N. 4 steps 88-Not attempted due to medical condition or safety concerns O. 12 steps 88-Not attempted due to medical condition or safety concerns P. Picking up object 06-Independent R. Wheel 50 feet with two turns 88-Not attempted due to medical condition or safety concerns S. Wheel 150 feet 88-Not attempted due to medical condition or safety concerns - Bladder and Bowel Bladder continence 0-Always continent Bowel continence 0-Always continent - Endurance Fair - Balance Fair - Safety Awareness Fair CURRENT [facility]. DEFICITS: Endurance, Balance, Safety Awareness, Self-Care, and Mobility SIGNATURE PANEL: (CDT)
[2019-12-19] MEDS: LIDOCAINE 4% PATCH TOP SCH (08:17)
[2019-12-19] MEDS: DULERA 100/5 (MOMETASONE/FORMOTEROL) INHALER IH SCH ×2 (08:19→18:58)
[2019-12-19] MEDS: GABAPENTIN 300 MG CAP PO SCH ×2 (08:20→18:58)
[2019-12-19] MEDS: MONTELUKAST 10 MG TAB PO SCH (08:20)
[2019-12-19] MEDS: CRANBERRY FRUIT EXTRACT 200 MG CAP PO SCH ×2 (08:20→18:58)
[2019-12-19] MEDS: MAGNESIUM OXIDE 400 MG TAB PO SCH ×2 (08:21→18:58)
[2019-12-19] MEDS: APIXABAN 2.5 MG TABLET PO SCH ×2 (08:21→18:58)
[2019-12-19] MEDS: DULOXETINE 20 MG CAP PO SCH (08:21)
[2019-12-19] MEDS: VITAMIN D 5,000 UNIT CAP PO SCH (08:21)
[2019-12-19] MEDS: FE SULF/FA/VIT B COMP & C TAB PO SCH (08:21)
[2019-12-19] MEDS: ASCORBIC ACID 500 MG TABLET PO SCH (08:22)
[2019-12-19] MEDS: AMLODIPINE 5 MG TAB PO SCH (08:22)
[2019-12-19] MEDS: FERROUS SULFATE 325 MG TAB PO SCH (08:22)
[2019-12-19] MEDS: PROMOD 30 ML DOSE PO SCH ×2 (08:23→19:06)
--- NOTE | 2019-12-19 14:17 | PN ---
Date of Progress Note: 12/19/2019 Subjective: The patient was seen this morning for followup. No new complaints or problems reported by her, lying in bed, not in distress. Objective: Vital Signs: Reviewed. HEENT: Unremarkable. Lungs: Clear to auscultation. Heart: Sounds normal. Abdomen: Soft. Bowel sounds normal. No guarding, rigidity, tenderness, or distention. Extremities: No leg edema. Impression: 1.Hypertension. 2.Asthma. 3.Anemia due to acute blood loss. 4.Right femur fracture. Plan: Continue current medication. We will go ahead and continue current antihypertensive medicatio n, inhaler, DVT prophylaxis with Eliquis. Pain medication per order. I will see her tomorrow for fo elda. ALEXA/MODL Voice ID: [id number] Report ID: [id number]
[2019-12-19] MEDS: CODEINE 30MG/APAP 300MG TAB PO PRN (18:57)
[2019-12-19] MEDS: DOCUSATE NA/SENNA CONC 1 TAB PO SCH (18:58)
[2019-12-20] MEDS: APIXABAN 2.5 MG TABLET PO SCH ×2 (07:30→20:45)
[2019-12-20] MEDS: GABAPENTIN 300 MG CAP PO SCH ×2 (07:31→20:45)
[2019-12-20] MEDS: PROMOD 30 ML DOSE PO SCH ×2 (07:31→20:45)
[2019-12-20] MEDS: MAGNESIUM OXIDE 400 MG TAB PO SCH ×2 (07:31→20:45)
[2019-12-20] MEDS: CRANBERRY FRUIT EXTRACT 200 MG CAP PO SCH ×2 (07:32→20:45)
[2019-12-20] MEDS: DULERA 100/5 (MOMETASONE/FORMOTEROL) INHALER IH SCH ×2 (07:32→20:44)
[2019-12-20] MEDS: VITAMIN D 5,000 UNIT CAP PO SCH (07:32)
[2019-12-20] MEDS: MONTELUKAST 10 MG TAB PO SCH (07:32)
[2019-12-20] MEDS: FERROUS SULFATE 325 MG TAB PO SCH (07:32)
[2019-12-20] MEDS: DULOXETINE 20 MG CAP PO SCH (07:32)
[2019-12-20] MEDS: FE SULF/FA/VIT B COMP & C TAB PO SCH (07:32)
[2019-12-20] MEDS: ASCORBIC ACID 500 MG TABLET PO SCH (07:32)
[2019-12-20] MEDS: AMLODIPINE 5 MG TAB PO SCH (07:33)
[2019-12-20] MEDS: CODEINE 30MG/APAP 300MG TAB PO PRN ×2 (08:08→20:51)
[2019-12-20] MEDS: LIDOCAINE 4% PATCH TOP SCH (10:08)
--- NOTE | 2019-12-20 13:23 | FAST ---
SHIFT START DATE/TIME: 12/20/2019 07:00 (CDT) SHIFT END DATE/TIME: 12/20/2019 19:00 (CDT) NAME BERTHA PARDO DATE OF : 1960 DATE OF ADMISSION: 12/02/2019 17:59 (CDT) PHONE: AGE: 58 N# [id number] GENDER: Female ENCOUNTER PHYSICIAN: Dr. Nick Romo M.D. ADMISSION DIAGNOSIS: - Orthopaedic Disorders 08 - Femur (Shaft) Fracture (08.2) RIGHT FEMUR FRACTURE. EATING: EATING - STEP 1: Does the patient complete the activity by him/herself with no assistance (physical, verbal/nonverbal cueing, setup/clean-up)? No. EATING - STEP 2: Does the patient need only setup/clean-up assistance from one helper? Yes. 1. [id number] ADMISSION PERFORMANCE: Setup or clean-up assistance CODE: 05 ORAL HYGIENE: ORAL HYGIENE - STEP 1: Does the patient complete the activity by him/herself with no assistance (physical, verbal/nonverbal cueing, setup/clean-up)? No. ORAL HYGIENE - STEP 2: Does the patient need only setup/clean-up assistance from one helper? Yes. 1. [id number] ADMISSION PERFORMANCE: Setup or clean-up assistance CODE: 05 TOILETING HYGIENE: TOILETING HYGIENE - STEP 1: Does the patient complete the activity by him/herself with no assistance (physical, verbal/nonverbal cueing, setup/clean-up)? No. TOILETING HYGIENE - STEP 2: Does the patient need only setup/clean-up assistance from one helper? Yes. 1. [id number] ADMISSION PERFORMANCE: Setup or clean-up assistance CODE: 05 BATHING: Not assessed/no information CODE: - DRESSING - UPPER BODY: DRESSING - UPPER BODY - STEP 1: Does the patient complete the activity by him/herself with no assistance (physical, verbal/nonverbal cueing, setup/clean-up)? No. DRESSING - UPPER BODY - STEP 2: Does the patient need only setup/clean-up assistance from one helper? Yes. 1. [id number] ADMISSION PERFORMANCE: Setup or clean-up assistance CODE: 05 DRESSING - LOWER BODY: DRESSING - LOWER BODY - STEP 1: Does the patient complete the activity by him/herself with no assistance (physical, verbal/nonverbal cueing, setup/clean-up)? No. DRESSING - LOWER BODY - STEP 2: Does the patient need only setup/clean-up assistance from one helper? No. DRESSING - LOWER BODY - STEP 3: Does the patient need only verbal/nonverbal cueing or touching/steadying/contact guard assistance fro m one helper? Yes. 1. [id number] ADMISSION PERFORMANCE: Supervision or touching assistance CODE: 04 PUTTING ON/TAKING OFF FOOTWEAR: FOOTWEAR - STEP 1: Does the patient complete the activity by him/herself with no assistance (physical, verbal/nonverbal cueing, setup/clean-up)? No. FOOTWEAR - STEP 2: Does the patient need only setup/clean-up assistance from one helper? No. FOOTWEAR - STEP 3: Does the patient need only verbal/nonverbal cueing or touching/steadying/contact guard assistance fro m one helper? Yes. 1. [id number] ADMISSION PERFORMANCE: Supervision or touching assistance CODE: 04 ROLL LEFT AND RIGHT: ROLL LEFT AND RIGHT - STEP 1: Does the patient complete the activity by him/herself with no assistance (physical, verbal/nonverbal cueing, setup/clean-up)? No. ROLL LEFT AND RIGHT - STEP 2: Does the patient need only setup/clean-up assistance from one helper? Yes. 1. [id number] ADMISSION PERFORMANCE: Setup or clean-up assistance CODE: 05 SIT TO LYING: SIT TO LYING - STEP 1: Does the patient complete the activity by him/herself with no assistance (physical, verbal/nonverbal cueing, setup/clean-up)? No. SIT TO LYING - STEP 2: Does the patient need only setup/clean-up assistance from one helper? Yes. 1. [id number] ADMISSION PERFORMANCE: Setup or clean-up assistance CODE: 05 LYING TO SITTING: LYING TO SITTING ON SIDE OF BED - STEP 1: Does the patient complete the activity by him/herself with no assistance (physical, verbal/nonverbal cueing, setup/clean-up)? No. LYING TO SITTING ON SIDE OF BED - STEP 2: Does the patient need only setup/clean-up assistance from one helper? Yes. 1. [id number] ADMISSION PERFORMANCE: Setup or clean-up assistance CODE: 05 SIT TO STAND: SIT TO STAND - STEP 1: Does the patient complete the activity by him/herself with no assistance (physical, verbal/nonverbal cueing, setup/clean-up)? No. SIT TO STAND - STEP 2: Does the patient need only setup/clean-up assistance from one helper? Yes. 1. [id number] ADMISSION PERFORMANCE: Setup or clean-up assistance CODE: 05 TRANSFERS: BED, CHAIR: CHAIR/[id number] TRANSFER - STEP 1: Does the patient complete the activity by him/herself with no assistance (physical, verbal/nonverbal cueing, setup/clean-up)? No. CHAIR/[id number] TRANSFER - STEP 2: Does the patient need only setup/clean-up assistance from one helper? Yes. 1. [id number] ADMISSION PERFORMANCE: Setup or clean-up assistance CODE: 05 TRANSFER TOILET: TOILET TRANSFER - STEP 1: Does the patient complete the activity by him/herself with no assistance (physical, verbal/nonverbal cueing, setup/clean-up)? No. TOILET TRANSFER - STEP 2: Does the patient need only setup/clean-up assistance from one helper? Yes. 1. [id number] ADMISSION PERFORMANCE: Setup or clean-up assistance CODE: 05 TRANSFERS: CAR: Not assessed/no information CODE: - WALK 10 FEET: Not assessed/no information CODE: - 1 STEP (CURB): Not assessed/no information CODE: - PICKING UP OBJECT: Not assessed/no information CODE: - DOES THE PATIENT USE A WHEELCHAIR/SCOOTER? Q1. DOES THE PATIENT USE A WHEELCHAIR/SCOOTER?: Yes CODE: 1 WHEEL 50 FEET WITH TWO TURNS: WHEEL 50 FEET WITH TWO TURNS - STEP 1: Does the patient complete the activity by him/herself with no assistance (physical, verbal/nonverbal cueing, setup/clean-up)? No. WHEEL 50 FEET WITH TWO TURNS - STEP 2: Does the patient need only setup/clean-up assistance from one helper? Yes. 1. [id number] ADMISSION PERFORMANCE: Setup or clean-up assistance CODE: 05 INDICATE THE TYPE OF WHEELCHAIR/SCOOTER USED: RR1. INDICATE THE TYPE OF WHEELCHAIR/SCOOTER USED.: Manual CODE: 1 WHEEL 150 FEET: WHEEL 150 FEET - STEP 1: Does the patient complete the activity by him/herself with no assistance (physical, verbal/nonverbal cueing, setup/clean-up)? No. WHEEL 150 FEET - STEP 2: Does the patient need only setup/clean-up assistance from one helper? Yes. 1. [id number] ADMISSION PERFORMANCE: Setup or clean-up assistance CODE: 05 INDICATE THE TYPE OF WHEELCHAIR/SCOOTER USED: SS1. INDICATE THE TYPE OF WHEELCHAIR/SCOOTER USED.: Manual CODE: 1 BLADDER AND BOWEL: H350. BLADDER CONTINENCE (3-DAY ASSESSMENT PERIOD): Always continent (no documented incontinence) CODE: 0 H400. BOWEL CONTINENCE (3-DAY ASSESSMENT PERIOD): Always continent CODE: 0 SIGNATURE PANEL: The following modified sections: 1. [id number] Admission Performance, 1. RU2402O Admission Performance, 1. [id number] Admission Performance, 1. RC5167f Admission Performance, 1. JF2219v Admission Performance, 1. HX3036f Admission Performance, 1. SY9768O Admission Performance, 1. [id number] Admission Performance , 1. [id number] Admission Performance, 1. JC1789G Admission Performance, 1. DG9978U Admission Performanc e, 1. CF0822A Admission Performance, Q1. Does the patient use a wheelchair/scooter?, 1. WR3862L Admis lala Performance, RR1. Indicate the type of wheelchair/scooter used., 1. [id number] Admission Performanc e, Code, SS1. Indicate the type of wheelchair/scooter used., H350. Bladder Continence (3-day assessme nt period), H400. Bowel Continence (3-day assessment period) were [electronically] signed by Emily SandovalNLea on FriDec 20 2019 13:22:47 GMT-0500 (Central Daylight Time)
[2019-12-20] MEDS: DOCUSATE NA/SENNA CONC 1 TAB PO SCH (20:45)
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
--- NOTE | 2019-12-21 01:00 | PN ---
Date of Progress Note: 12/20/2019 Subjective: The patient was seen this morning for followup. No new complaints or problems reported by her. Lying in bed. Not in distress. Objective: Vital Signs: Reviewed. HEENT: Unremarkable. Lungs: Clear to auscultation. Heart: Sounds normal. Abdomen: Soft. Bowel sounds normal. No guarding, rigidity, tenderness, distention. Extremities: No leg edema. Impression: 1.Right femur fracture. 2.Hypertension. 3.Asthma. 4.Acute blood loss anemia. Plan: We will continue current medication. Continue antihypertensive medication, inhaler, Eliquis, and pain medications per order. The patient is scheduled to go home tomorrow. I will see her in the morning for followup and then we will discharge her tomorrow. ALEXA/MODL Voice ID: [id number] Report ID: [id number]
[2019-12-21 07:06] VITALS: BP 121/77; TEMP 98
[2019-12-21] MEDS: AMLODIPINE 5 MG TAB PO SCH (08:00)
[2019-12-21] MEDS: PROMOD 30 ML DOSE PO SCH (08:00)
[2019-12-21] MEDS: LIDOCAINE 4% PATCH TOP SCH (08:17)
[2019-12-21] MEDS: GABAPENTIN 300 MG CAP PO SCH (08:19)
[2019-12-21] MEDS: DULERA 100/5 (MOMETASONE/FORMOTEROL) INHALER IH SCH (08:19)
[2019-12-21] MEDS: APIXABAN 2.5 MG TABLET PO SCH (08:19)
[2019-12-21] MEDS: MAGNESIUM OXIDE 400 MG TAB PO SCH (08:20)
[2019-12-21] MEDS: FERROUS SULFATE 325 MG TAB PO SCH (08:21)
[2019-12-21] MEDS: FE SULF/FA/VIT B COMP & C TAB PO SCH (08:21)
[2019-12-21] MEDS: MONTELUKAST 10 MG TAB PO SCH (08:21)
[2019-12-21] MEDS: VITAMIN D 5,000 UNIT CAP PO SCH (08:21)
[2019-12-21] MEDS: DULOXETINE 20 MG CAP PO SCH (08:22)
[2019-12-21] MEDS: ASCORBIC ACID 500 MG TABLET PO SCH (08:22)
[2019-12-21] MEDS: CRANBERRY FRUIT EXTRACT 200 MG CAP PO SCH (08:22)
[2019-12-21] MEDS: CODEINE 30MG/APAP 300MG TAB PO PRN ×2 (08:23→13:00)
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
== END 2019-12-21 13:55 | disposition home health service (06) | DRG 561 ==
LOC: 5TH 12-02 19:59
PROVIDERS: ADMIT Psychiatry & Neurology Neurology with Special Qualifications in Child Neurology; ATTEND Internal Medicine
DX: S72.301D Unspecified fracture of shaft of right femur, subsequent encounter for closed fracture with routine healing (principal); J45.909 Unspecified asthma, uncomplicated; I10 Essential (primary) hypertension; Z11.59 Encounter for screening for other viral diseases; Z88.1 Allergy status to other antibiotic agents; Z91.013 Allergy to seafood; Z91.018 Allergy to other foods; Z79.899 Other long term (current) drug therapy; Z90.49 Acquired absence of other specified parts of digestive tract; Z98.51 Tubal ligation status
CPT/HCPCS: 36415; 71045; 80048; 80053; 80076; 81001; 82040; 83735; 84134; 84443; 85025; 87086; 87088; 97110; 97112; 97116; 97162; 97530; 97542; J7606; U0002

== ENCOUNTER 2021-02-28 09:34 | Emergency (ER) | payer OTHER ==
[2021-02-28 10:44] LABS: Urine Blood 1+ (Negative); Urine Glucose Negative (Negative); Urine Protein Negative (Negative); Urine pH 6.5 (5.0-7.0)
--- NOTE | 2021-02-28 10:52 | RAD REPORT ---
EXAM DESCRIPTION: RAD - Chest Single View - 02/28/2021 10:41 am CLINICAL HISTORY: CHEST PAIN COMPARISON: November 2019 TECHNIQUE: AP portable chest image was obtained 02/28/2021 10:41 am . FINDINGS: Under penetrated film technique and large body habitus accentuate the lung markings. Patie nt has a patchy airspace pattern in the lower left lung field with questionable airspace patchy opaci ties at the right lung base. No failure or volume overload. Heart and vasculature are normal. No laci urable pleural effusion and no pneumothorax. No acute bony abnormality seen. No acute aortic findings suspected. IMPRESSION: Patchy airspace disease in both lower lung valenzuela. Findings are suspicious for early mariano ateral pneumonia. Pattern would be compatible with a COVID-19 pneumonia.
[2021-02-28] MEDS ORDERED: NA CHLORIDE 0.9% 1,000 ML ONE (11:24)
[2021-02-28 11:54] LABS: Absolute Lymphocytes (CBC) 1.3 K/uL (0.7-4.9); Basophils % 0.4 % (0-1.3); Hematocrit 39.8 % (36.0-45.0); Lymphocytes % 9.9 % (15.3-44.8); MPV 7.1 fL (7.6-11.3); RBC Red Blood Cell Count 4.56 M/uL (3.86-4.86)
[2021-02-28 12:31] LABS: ALT/SGPT 36 U/L (12-78); AST/SGOT 31 U/L (15-37); Albumin 3.6 g/dL (3.4-5.0); Alkaline Phosphatase 90 U/L (45-117); BUN Blood Urea Nitrogen 14 mg/dL (7-18); Bicarbonate 28 mmol/L (21-32); Bilirubin Direct 0.2 mg/dL (0-0.2); Bilirubin Total 0.7 mg/dL (0.2-1.0); Glucose Level 118 mg/dL (74-106); Magnesium 1.9 mg/dL (1.8-2.4); NT PRO-BNP 362 pg/mL (<125); Potassium 3.7 mmol/L (3.5-5.1); Protein, Total 7.4 g/dL (6.4-8.2); Sodium Level 142 mmol/L (136-145); Troponin (Emerg Dept Use Only) < 0.02 ng/mL (0.0-0.045)
[2021-02-28 12:48] LABS: Protime INR 1.09
[2021-02-28 12:51] LABS: Blood Morphology Comment NOT SEEN (NOT SEEN); Platelet Estimate ADEQ; White Blood Cell Scan OK (OK)
[2021-02-28] MEDS ORDERED: AZITHROMYCIN 250 MG TAB ONE (15:14)
--- NOTE | 2021-02-28 15:38 | ER ---
Nurse's Notes [facility] Name: Corin Shaikh Age: 60 yrs Sex: Female : 1960 Arrival Date: 02/28/2021 Time: 09:35 Bed 19 Private MD: Yesenia Thompson C Diagnosis: Pneumonia Presentation: 02/28 09:39 Chief complaint: Patient states: Woke this morning at 0430 with back pain between jl7 shoulder blades, chills, diaphoretic, dizziness and headache, reports BP was 50 systolic, denies chest pain, denies nausea. Coronavirus screen: At this time, the client does not indicate any symptoms associated with coronavirus-19. Ebola Screen: No symptoms or risks identified at this time. Initial Sepsis Screen: Does the patient meet any 2 criteria? No. Patient's initial sepsis screen is negative. Does the patient have a suspected source of infection? No. Patient's initial sepsis screen is negative. Risk Assessment: Do you want to hurt yourself or someone else? Patient reports no desire to harm self or others. Onset of symptoms was February 28, 2021 at 04:30. Care prior to arrival: None. 09:39 Method Of Arrival: Ambulatory [facility] 09:39 Acuity: JOHNNY 3 jl7 Triage Assessment: 09:43 Headache History: The patient has had previous headaches and this one is similar to jl7 previous episodes. General: Appears in no apparent distress. uncomfortable, Behavior is calm, cooperative, appropriate for age. Pain: Complains of pain in forehead Pain currently is 7 out of 10 on a pain scale. Pain began 4 hours ago. Also complains of no other associated symptoms. Neuro: Level of Consciousness is awake, alert, obeys commands, Oriented to person, place, time, situation, Moves all extremities. Full function Gait is steady, Speech is normal, Facial symmetry appears normal. Historical: - Allergies: 09:43 Ceclor; jl7 09:43 SHELLFISH; jl7 09:43 Strawberries; jl7 - Home Meds: 09:43 Advair Diskus Inhl [Active]; Jena Oral [Active]; Singulair Oral [Active]; jl7 - PMHx: 09:43 Asthma; Hypertension; jl7 - PSHx: 09:43 Right femur repair; section; Ligation of fallopian tube; gastric sleeve; Low jl7 back disk herniation surgery; - Immunization history:: Adult Immunizations not up to date, Client reports having NOT received the Covid vaccine. - Social history:: Smoking status: Patient denies any tobacco usage or history of. Screenin:57 Abuse screen: Denies threats or abuse. Nutritional screening: No deficits noted. ap3 Tuberculosis screening: No symptoms or risk factors identified. Fall Risk None identified. Assessment: 10:55 General: Appears in no apparent distress. comfortable, Behavior is calm, cooperative, ap3 appropriate for age, Reports chills for 12-24 hours. Pain: Denies pain. Neuro: Level of Consciousness is awake, alert, obeys commands, Oriented to person, place, time, situation, Appropriate for age Moves all extremities. Gait is steady, Speech is normal. Cardiovascular: Denies chest pain, lightheadedness, shortness of breath. Cardiovascular: Parent/caregiver reports patient has had low blood pressure over night. Respiratory: Airway is patent Respiratory effort is even, unlabored, Respiratory pattern is regular, symmetrical, Breath sounds are clear bilaterally. GI: No signs and/or symptoms were reported involving the gastrointestinal system. : No signs and/or symptoms were reported regarding the genitourinary system. 12:44 Reassessment: Patient and/or family updated on plan of care and expected duration. Pain ap3 level reassessed. Patient is alert, oriented x 3, equal unlabored respirations, skin warm/dry/pink. 13:34 Reassessment: Patient and/or family updated on plan of care and expected duration. Pain ap3 level reassessed. Patient is alert, oriented x 3, equal unlabored respirations, skin warm/dry/pink. 14:32 Reassessment: Patient and/or family updated on plan of care and expected duration. Pain ap3 level reassessed. Patient is alert, oriented x 3, equal unlabored respirations, skin warm/dry/pink. Vital Signs: 09:43 BP 132 / 89 LA; jl7 09:43 BP 126 / 87 RA; Pulse 101; Resp 19; Temp 98; Pulse Ox 96% ; Weight 95.25 kg; Height 4 jl7 ft. 7 in. (139.70 cm); Pain 7/10; 10:12 BP 135 / 81; es2 11:45 BP 129 / 76; ap3 12:44 BP 135 / 75; Pulse 96; Pulse Ox 100% on R/A; ap3 13:34 BP 120 / 76; Pulse 86; Resp 18; Pulse Ox 97% on R/A; ap3 14:32 BP 131 / 76; Pulse 89; Pulse Ox 97% on R/A; ap3 15:34 BP 131 / 70; Pulse 82; Pulse Ox 97% on R/A; ap3 09:43 Body Mass Index 48.81 (95.25 kg, 139.70 cm) jl7 ED Course: 09:35 Patient arrived in ED. am2 09:35 Yesenia Thompson MD is Private Physician. am2 09:43 Triage completed. jl7 09:43 Arm band placed on right wrist. jl7 09:52 Mireille Schwartz, ANURAG is Primary Nurse. ap3 09:52 Morgan Gilliland PA is PHCP. [facility] 09:52 Moises Rice MD is Attending Physician. jmm 10:07 CBC with Diff Sent. es2 10:07 LFT's Sent. es2 10:08 Magnesium Sent. es2 10:08 NT PRO-BNP Sent. es2 10:08 PT-INR Sent. es2 10:08 Troponin (emerg Dept Use Only) Sent. es2 10:08 Basic Metabolic Panel Sent. es2 10:08 Basic Metabolic Panel Sent. es2 10:08 Inserted saline lock: 20 gauge in right forearm, using aseptic technique. Blood es2 collected. 10:42 XRAY Chest (1 view) In Process Unspecified. EDMS 10:57 Patient has correct armband on for positive identification. Placed in gown. Bed in low ap3 position. Call light in reach. Side rails up X2. Pulse ox on. NIBP on. Door closed. Noise minimized. 15:37 Yesenia Thompson MD is Referral Physician. jmm 15:53 IV discontinued, intact, bleeding controlled, No redness/swelling at site. Pressure ap3 dressing applied. 15:53 No provider procedures requiring assistance completed. ap3 Administered Medications: 11:45 Drug: NS 0.9% 1000 ml Route: IV; Rate: 1 bolus; Site: left antecubital; ap3 15:54 Follow up: IV Status: Completed infusion; IV Intake: 1000ml ap3 14:51 Drug: AZITHromycin 500 mg Route: PO; ap3 15:54 Follow up: Response: No adverse reaction ap3 Intake: 15:54 IV: 1000ml; Total: 1000ml. ap3 Outcome: 15:37 Discharge ordered by . catarina 15:53 Discharged to home ambulatory. ap3 15:53 Condition: good 15:53 Discharge instructions given to patient, Instructed on discharge instructions, follow up and referral plans. medication usage, Demonstrated understanding of instructions, follow-up care, medications, Prescriptions given X 2. 16:03 Patient left the ED. ap3 Signatures: Dispatcher [employer] EDMS Morgan Gilliland PA PA jmm Leal, Jahala RN RN jl7 Mireille Lagos am2 Mireille Schwartz RN RN ap3 Leny Adler RN RN es2 Corrections: (The following items were deleted from the chart) 09:46 09:43 BP 126 / 87; Pulse 101bpm; Resp 19bpm; Pulse Ox 96%; Temp 98F; 95.25 kg; Height 4 jl7 ft. 7 in.; BMI: 48.8; Pain 7/10; jl7 15:35 15:29 BP 111 / 44; Pulse 78bpm; Pulse Ox 98% RA; ap3 ap3
--- NOTE | 2021-02-28 15:38 | EDPHYS ---
Physician Documentation [facility] Name: Corin Shaikh Age: 60 yrs Sex: Female : 1960 Arrival Date: 02/28/2021 Time: 09:35 Bed 19 Private MD: Yesenia Thompson C ED Physician Moises Rice HPI: 02/28 09:54 This 60 yrs old Female presents to ER via Ambulatory with complaints of jmm Headache, shaky, Back Pain, Blood Pressure Problem. 09:54 Weakness, low blood pressure. Onset: The symptoms/episode began/occurred gradually. Is jmm a 60-year-old this is a 60-year-old female with a history of asthma and hypertension that presents emerged department with complaints of upper back pain, weakness, fatigue beginning last night. Patient states that she developed chills. Patient denies chest pain. Patient states that she took her blood pressure at home which was low.. Historical: - Allergies: 09:43 Ceclor; jl7 09:43 SHELLFISH; jl7 09:43 Strawberries; jl7 - Home Meds: 09:43 Advair Diskus Inhl [Active]; Jena Oral [Active]; Singulair Oral [Active]; jl7 - PMHx: 09:43 Asthma; Hypertension; jl7 - PSHx: 09:43 Right femur repair; section; Ligation of fallopian tube; gastric sleeve; Low jl7 back disk herniation surgery; - Immunization history:: Adult Immunizations not up to date, Client reports having NOT received the Covid vaccine. - Social history:: Smoking status: Patient denies any tobacco usage or history of. ROS: 09:54 Cardiovascular: Negative for chest pain, palpitations, and edema, Respiratory: Negative jmm for shortness of breath, cough, wheezing, and pleuritic chest pain. 09:54 Constitutional: Positive for body aches, fatigue. 09:54 Respiratory: 09:54 Neuro: Positive for weakness. 09:54 All other systems are negative. Exam: 09:54 Constitutional: This is a well developed, well nourished patient who is awake, alert, jmm and in no acute distress. Head/Face: atraumatic. Eyes: EOMI, no conjunctival erythema appreciated ENT: Moist Mucus Membranes Neck: Trachea midline, Supple Chest/axilla: Normal chest wall appearance and motion. Cardiovascular: Regular rate and rhythm. No edema appreciated Respiratory: Normal respirations, no respiratory distress appreciated Abdomen/GI: Non distended, soft Back: Normal ROM Skin: General appearance color normal 09:54 Musculoskeletal/extremity: ROM: intact in all extremities. 09:54 Skin: Appearance: Color: normal in color. 09:54 Neuro: Orientation: is normal, Mentation: is normal, Memory: is normal. 09:54 Psych: Behavior/mood is pleasant, cooperative. Vital Signs: 09:43 BP 132 / 89 LA; jl7 09:43 BP 126 / 87 RA; Pulse 101; Resp 19; Temp 98; Pulse Ox 96% ; Weight 95.25 kg; Height 4 jl7 ft. 7 in. (139.70 cm); Pain 7/10; 10:12 BP 135 / 81; es2 11:45 BP 129 / 76; ap3 12:44 BP 135 / 75; Pulse 96; Pulse Ox 100% on R/A; ap3 13:34 BP 120 / 76; Pulse 86; Resp 18; Pulse Ox 97% on R/A; ap3 14:32 BP 131 / 76; Pulse 89; Pulse Ox 97% on R/A; ap3 15:34 BP 131 / 70; Pulse 82; Pulse Ox 97% on R/A; ap3 09:43 Body Mass Index 48.81 (95.25 kg, 139.70 cm) jl7 MDM: 09:54 Patient medically screened. cari 15:34 Data reviewed: vital signs, nurses notes. Counseling: I had a detailed discussion with catarina the patient and/or guardian regarding: the historical points, exam findings, and any diagnostic results supporting the discharge/admit diagnosis, lab results, radiology results, the need for outpatient follow up, to return to the emergency department if symptoms worsen or persist or if there are any questions or concerns that arise at home. ED course: Patient is alert and not patient is alert and nontoxic in appearance in the ED. X-ray findings consistent with pneumonia, patient's Covid swab was negative but there is still concern some concerns for false negative. Patient is not hypoxic, has no chest pain, advised to follow-up with her PCP and otherwise given strict return precautions. Patient understood and agrees plan of care.. 02/28 09:54 Order name: Basic Metabolic Panel [facility] 02/28 09:54 Order name: CBC with Diff; Complete Time: 12:52 [facility] 02/28 09:54 Order name: LFT's; Complete Time: 12:32 [facility] 02/28 09:54 Order name: Magnesium; Complete Time: 12:32 [facility] 02/28 09:54 Order name: NT PRO-BNP; Complete Time: 12:32 [facility] 02/28 09:54 Order name: PT-INR; Complete Time: 12:54 [facility] 02/28 09:54 Order name: Troponin (emerg Dept Use Only); Complete Time: 12:32 [facility] 02/28 09:55 Order name: Basic Metabolic Panel; Complete Time: 12:32 EDMS 02/28 10:18 Order name: D-Dimer [facility] 02/28 10:19 Order name: D-Dimer; Complete Time: 12:03 [facility] 02/28 10:44 Order name: Urine Dipstick-Ancillary; Complete Time: 10:46 EDMS 02/28 11:55 Order name: CBC Smear Scan; Complete Time: 12:52 [facility] 02/28 12:46 Order name: SARS-COV-2 RT PCR; Complete Time: 13:43 EDMS 02/28 09:54 Order name: XRAY Chest (1 view); Complete Time: 10:53 [facility] 02/28 09:54 Order name: EKG; Complete Time: 09:55 [facility] 02/28 09:54 Order name: Cardiac monitoring; Complete Time: 10:04 [facility] 02/28 09:54 Order name: EKG - Nurse/Tech; Complete Time: 10:04 [facility] 02/28 09:54 Order name: IV Saline Lock; Complete Time: 10:07 [facility] 02/28 09:54 Order name: Labs collected and sent; Complete Time: 10:07 [facility] 02/28 09:54 Order name: O2 Per Protocol; Complete Time: 10:04 [facility] 02/28 09:54 Order name: O2 Sat Monitoring; Complete Time: 10:04 [facility] 02/28 10:17 Order name: Labs - recollect needed: recollect blue top; Complete Time: 11:34 bd 02/28 10:18 Order name: Urine Dipstick-Ancillary (obtain specimen); Complete Time: 10:43 [facility] 02/28 10:29 Order name: Labs - recollect needed: recollect green and lavender top; Complete Time: bd 11:34 Administered Medications: 11:45 Drug: NS 0.9% 1000 ml Route: IV; Rate: 1 bolus; Site: left antecubital; ap3 15:54 Follow up: IV Status: Completed infusion; IV Intake: 1000ml ap3 14:51 Drug: AZITHromycin 500 mg Route: PO; ap3 15:54 Follow up: Response: No adverse reaction ap3 Disposition: 03/01 07:53 Co-signature as Attending Physician, Moises Rice MD I agree with the assessment and [facility] plan of care. Disposition Summary: 02/28/21 15:37 Discharge Ordered Location: Home [facility] Condition: Stable [facility] Diagnosis - Pneumonia [facility] Followup: [facility] - With: Yesenia Thompson MD - When: 2 - 3 days - Reason: Recheck today's complaints, Continuance of care, Re-evaluation by your physician Discharge Instructions: - Discharge Summary Sheet [facility] - Community-Acquired Pneumonia, Adult [facility] Forms: - Medication Reconciliation Form [facility] - Thank You Letter [facility] - Antibiotic Education [facility] - Prescription Opioid Use [facility] Prescriptions: - Zithromax Z-Gordo 250 mg Oral Tablet - take 1 tablet by ORAL route as directed for 5 days Day 1 - take two (2) tablets [facility] one time. Day 2, 3, 4 , 5 take one (1) tablet once daily.; 6 tablet; Refills: 0, Product Selection Permitted - albuterol sulfate 90 mcg/actuation Inhalation HFA aerosol inhaler - inhale 2 puff by INHALATION route every 4 hours; 1 Pump; Refills: 0, Product [facility] Selection Permitted Signatures: Dispatcher [employer] EDMar Brian Corey, MD MD cha Mickail, Joel, PA PA jmm Leal, Jahala, RN RN jl7 Mireille Schwartz RN RN ap3 Corrections: (The following items were deleted from the chart) 02/28 12:46 12:05 CORONAVIRUS+ ordered. EDMS EDMS
[2021-02-28 16:08] VITALS: TEMP 98
[2021-02-28 16:12] VITALS: O2SAT 97
[2021-02-28 16:14] VITALS: BP 131/70
== END 2021-02-28 16:03 | disposition home or self-care (01) ==
LOC: ER 09:34
DX: J18.9 Pneumonia, unspecified organism (principal); I10 Essential (primary) hypertension; Z20.822 Contact with and (suspected) exposure to COVID-19; Z88.1 Allergy status to other antibiotic agents; Z91.013 Allergy to seafood; Z91.018 Allergy to other foods
CPT/HCPCS: 96361; 93005; 85025; 80048; 36415; 83735; 85610; 85379; 80076; 81003; 84484; 83880; 71045; 96360; 99284; U0003; J7030